=== PATIENT | male | born 1965 | race Caucasian/White ===

== ENCOUNTER 2019-12-13 15:10 | Outpatient (REF) | payer OTHER, SELFPAY ==
[2019-12-13 15:43] LABS: MANUAL DIFF FLAG NO
[2019-12-13 15:49] LABS: Basophils Percent Auto 0.4 % (0-2); Eosinophils Absolute Auto 0.1 X10*3/uL (0.0-0.4); Eosinophils Percent Auto 1.6 % (0-4); Hematocrit 37.2 % (42-52); Hemoglobin 12.9 g/dl (14.0-18.0); Imm Gran Abs Auto 0.04 X10*3/uL (0.00-0.03); Imm Gran Pct Auto 0.5 % (0.0-0.4); Lymphocytes Absolute Auto 1.7 X10*3/uL (1.2-4.9); Lymphocytes Percent Auto 23.9 % (20-40); Mean Corpuscular HGB Conc 34.7 g/dl (31.0-36.0); Mean Corpuscular Hemoglobin 31.5 pg (27.0-33.0); Mean Platelet Volume 8.5 fL (9.4-12.4); Monocytes Absolute Auto 0.5 X10*3/uL (0.1-1.2); Neutrophils Absolute Auto 4.8 X10*3/uL (2.0-8.3); Neutrophils Percent Auto 66.6 % (45-73); Platelet Count 138 X10*3/uL (160-400); Red Blood Count 4.09 X10*6/uL (4.60-5.80); Red Cell Distribution Width 13.1 % (11.0-16.0); White Blood Count 7.3 X10*3/uL (4.8-10.8)
[2019-12-13 16:10] LABS: C Reactive Protein 0.41 mg/dL (< or = 0.50)
== END 2019-12-13 15:11 | disposition home or self-care (01) ==
LOC: HO.LAB 15:10
PROVIDERS: PCP Internal Medicine; Visit Provider Internal Medicine
DX: D64.9 Anemia, unspecified (principal); D69.6 Thrombocytopenia, unspecified; L98.9 Disorder of the skin and subcutaneous tissue, unspecified
CPT/HCPCS: 36415; 85025; 86140

== ENCOUNTER 2019-12-20 14:28 | Outpatient (REF) | payer OTHER, SELFPAY ==
--- NOTE | 2019-12-20 | MM_ITS ---
EXAMINATION: MM DIAGNOSTIC DIGITAL BREAST TOMOSYNTHESIS, BILATERAL US DIAGNOSTIC ULTRASOUND BREAST, LEFT CLINICAL INFORMATION: 54-year-old male with palpable fullness outer left breast. Prior history left breast surgery for palpable mass 2008, benign. Family history breast cancer in sister, age 55. COMPARISON: Report mammography 07/23/2008, report ultrasound left breast 07/23/2008. TECHNIQUE: Digital breast tomosynthesis is performed in both the craniocaudal and mediolateral oblique views along with computer-aided detection (CAD). Synthesized 2D images are generated from the tomosynthesis. Additional exaggerated left CC view is provided. Ultrasound left breast is targeted to the area of clinical concern noted by patient inferior and lateral anterior posterior left breast. Grayscale imaging and color Doppler are performed without and with harmonics. Patient is able to point to the areas of concern at time of imaging. FINDINGS: The breasts are almost entirely fatty (ACR BI-RADS breast composition Category a). Background stromal markings are symmetric. There is no mass or architectural abnormality. No abnormal calcifications. The axilla and skin contours are unremarkable. Ultrasound left breast demonstrates no cystic or solid mass or architectural abnormality. No focal duct ectasia. No skin thickening or edema tracking in the soft tissue planes. Results are discussed with the patient at time of visit. Patient should be managed based on the clinical impression. If clinically indicated, further evaluation may be considered with surgical consult. Decision to proceed with biopsy should be based on clinical grounds and degree of clinical concern. IMPRESSION: 1. No mammographic evidence of malignancy. 2. Unremarkable targeted left breast ultrasound. ASSESSMENT: BI-RADS 1: Negative RECOMMENDATION: Patient should be managed based on the clinical impression. If clinically indicated, further evaluation may be considered with surgical consult. Decision to proceed with biopsy should be based on clinical grounds and degree of clinical concern.
== END 2019-12-20 14:29 | disposition home or self-care (01) ==
LOC: HO.MAMMO 14:28
PROVIDERS: PCP Internal Medicine; Visit Provider Internal Medicine
DX: N63.25 Unspecified lump in the left breast, overlapping quadrants (principal)
CPT/HCPCS: 76642; 77062; 77066; 78013

== ENCOUNTER → 2020-01-09 14:15 | Outpatient (BNVA) | payer OTHER, SELFPAY | PROVIDERS: PCP Internal Medicine; Referring Provider Internal Medicine; Visit Provider Surgery | DX: Z76.89 Persons encountering health services in other specified circumstances (principal) ==

== ENCOUNTER 2020-01-17 06:42 | Day surgery (SDC) | payer OTHER, SELFPAY ==
--- NOTE | 2020-01-15 15:09 | P.CONAN_ITS ---
Documented by User: Mary Beth Sutherland 01/15/20 15:10 HPI - Anesthesia Eval Consult details Narrative: 54yo M for Excision Pectoral Mass [facility] Past Medical History Medical History (Updated 01/17/20 @ 07:08 by Princess Clifford RN) Celiac disease Family history of breast cancer Family history of ovarian cancer Gynecomastia Family History Family History Father History of prostate cancer Mother History of ovarian cancer Sister History of breast cancer Sister History of lung cancer Maternal Uncle History of lung cancer Surgical History Surgical History History of breast lump/mass excision History of eye surgery Social History Social History Alcohol intake: current Alcohol intake frequency: 0-2 drinks per day Alcohol type: beer Smoking Status: Former smoker Years Smoked: 12 Smoking Quit Date: 1989 Use of substances other than those prescribed or required for medical reasons: No Advance Directives: No Advance Directives Information Provided: Yes Meds Allergies Allergy/AdvReac Type Severity Reaction Status Date / Time No Known Allergies Allergy Verified 01/09/20 14:56 Home Medications Medication Instructions Recorded Confirmed Type No Known Home Meds 01/09/20 History Exam Exam Date and Time: January 15, 2020 8559 Pertinent Lab Results Pertinent Lab Results: Laboratory Tests 07/26/19 12/13/19 16:20 15:30 WBC 7.3 Hgb 12.9 L Hct 37.2 L Plt Count 138 L Sodium 138 Potassium 3.5 Chloride 102 BUN 16 Creatinine 1.12 Assessment and Plan Assessment Anesthesia Assessment: Chart Reviewed Documented by User: Thierry Garcia 01/17/20 08:38 [facility] Past Medical History Medical History (Updated 01/17/20 @ 07:08 by Princess Clifford RN) Celiac disease Family history of breast cancer Family history of ovarian cancer Gynecomastia Family History Family History Father History of prostate cancer Mother History of ovarian cancer Sister History of breast cancer Sister History of lung cancer Maternal Uncle History of lung cancer Surgical History Surgical History History of breast lump/mass excision History of eye surgery Social History Social History Alcohol intake: current Alcohol intake frequency: 0-2 drinks per day Alcohol type: beer Smoking Status: Former smoker Years Smoked: 12 Smoking Quit Date: 1989 Use of substances other than those prescribed or required for medical reasons: No Advance Directives: No Advance Directives Information Provided: Yes Meds Allergies Allergy/AdvReac Type Severity Reaction Status Date / Time No Known Allergies Allergy Verified 01/09/20 14:56 Home Medications Medication Instructions Recorded Confirmed Type No Known Home Meds 01/09/20 History Exam Airway Mallampati Class: I TM Dist: >3cm Neck ROM: Full Other: missing teeth. Assessment and Plan Assessment Anesthesia Assessment: Anesthesia Plan Discussed and Chart Reviewed Final Anesthetic Review NPO: Yes ASA Class: II Final Preanesthetic Review: No Changes in Pt Med Stat, Meds/Allgs Chart Reviewed, Consent Obtained/Reviewed and Anes Risks/Benef Reviewed Patient Risk: Low Procedure Risk: Low Anesthetic Plan Anesthetic Plan: MAC: and Agree w/ Assess. and Plan Disposition: Standard PACU
[2020-01-17 06:48] VITALS: BMI 26.2
[2020-01-17 06:57] VITALS: BP 121/68; PULSE 65; RESP 16; TEMP 36.7; O2SAT 95
[2020-01-17] MEDS: Lactated Ringers 1,000 ML 100 ML IVCONT (07:07)
--- NOTE | 2020-01-17 08:22 | MHC.SHP ---
Pre-Procedural Eval Section A The patient is an INPATIENT: No Changes since office visit: Yes Patient answered all questions; No Cold of Flu in the past 2 weeks, No New Medical Problems and No Changes in Medication The History & Physical has been completed within 30 days and I have reviewed it.: Yes Section B Chief Complaint: Mass of Left Chest Wall Allergies: Allergies Allergy/AdvReac Type Severity Reaction Status Date / Time No Known Allergies Allergy Verified 01/09/20 14:56 Plan Patient has been examined and remains a candidate for the planned procedure
[2020-01-17 09:33] VITALS: BP 121/68; PULSE 57; RESP 16; TEMP 36.6; O2SAT 96
--- NOTE | 2020-01-17 09:45 | W.PM.OPN ---
Operative Note Operative Note Narrative: Preoperative diagnosis: Mass left chest wall Postoperative diagnosis: Same Procedure: Excision of mass left chest wall Product Marketing Engineer: None Anesthesia: monitored anesthesia care Estimated blood loss: 5 cc Specimen: Left breast tissue Immediate complications: None Other findings: None Indications this is a 54-year-old male with a prior history of excision of left gynecomastia who presents with a tender mass of the left chest wall at about 03:00 o'clock just lateral to the areolar border. Procedure in detail: With the patient in the supine position, a time-out procedure was performed. The left chest wall was prepped with ChloraPrep and was draped sterilely. Skin and subcutaneous tissues were infiltrated with local anesthetic. A curvilinear incision was made at the lateral border of the areola and was carried into the subcutaneous tissues. Bleeding was controlled using the cautery. Flap was then raised moving laterally to the area of the palpable mass. The mass was sharply excised using Metzenbaum scissors. Bleeding was controlled using the electrocautery. The excised tissue appeared consistent with benign breast tissue. Palpation of the surgical site revealed some remaining nodular tissue. This was grasped with an Allis clamp and excised. Repeat palpation of the surgical site did not reveal any residual for more nodular tissue. The wound was irrigated with saline solution and was inspected for bleeding. Minimal bleeding was noted and was controlled using the cautery. The wound was then closed with interrupted subcutaneous sutures of 3-0 Polysorb. Skin was closed with a running subcuticular suture of 4-0 Polysorb. Steri-Strips and a dry sterile dressing were applied. He tolerated the procedure well and was transported to the recovery room in stable condition. There were no immediate complications. Sponge and sharp counts were correct.
[2020-01-17 09:48] VITALS: BP 126/74; PULSE 59; RESP 17; TEMP 36.6; O2SAT 97
--- NOTE | 2020-01-17 10:11 | HO.POSTANES ---
Post Anesthesia Evaluation Post Anesthesia Evaluation Vital Signs: Vital Signs Temp Pulse Resp BP Pulse Ox 01/17/20 09:48 98 F 59 17 126/74 97 01/17/20 09:33 97.9 F 57 16 121/68 96 01/17/20 06:57 98.0 F 65 16 121/68 95 Anesthesia: General (tiva) Mental Status: Awake Pain Control: Satisfactory Nausea/Vomiting: None Hydration: Adequate Anesthesia-Related Issues: No Anes. Related Issues
== END 2020-01-17 10:35 | disposition home or self-care (01) ==
PROVIDERS: PCP Internal Medicine; Visit Provider Surgery
DX: D24.2 Benign neoplasm of left breast (principal); N62 Hypertrophy of breast; Z80.3 Family history of malignant neoplasm of breast
CPT/HCPCS: 11404; 12032; 88305; J2250; J3010

== ENCOUNTER → 2020-01-25 09:24 | Outpatient (BNVA) | payer OTHER, SELFPAY | PROVIDERS: PCP Internal Medicine; Referring Provider Internal Medicine; Visit Provider Surgery | DX: Z76.89 Persons encountering health services in other specified circumstances (principal) ==

== ENCOUNTER → 2020-02-20 15:58 | Outpatient (BNVA) | payer OTHER, SELFPAY | PROVIDERS: PCP Internal Medicine; Visit Provider Surgery | DX: Z76.89 Persons encountering health services in other specified circumstances (principal) ==

== ENCOUNTER 2020-03-12 15:54 | Outpatient (REF) | payer OTHER, SELFPAY | END 2020-03-12 15:55 | disposition home or self-care (01) | LOC: HO.LNP 15:54 | PROVIDERS: Visit Provider Internal Medicine | DX: Z20.828 Contact with and (suspected) exposure to other viral communicable diseases (principal) | CPT/HCPCS: U0003 ==

== ENCOUNTER 2020-05-05 09:55 | Emergency (ER) | payer OTHER, SELFPAY ==
--- NOTE | ~2020-05-05 | XR_ITS ---
EXAMINATION: XR knee LT 4V CLINICAL INFORMATION: Pain and swelling COMPARISON: None available at the time of this dictation. TECHNIQUE: frontal, lateral, tunnel and patella sunrise views FINDINGS: BONES: No fracture or dislocation is present. JOINTS: Narrowing of joint spaces and developed osteophytes from the edges of articular surfaces suggest degenerative osteoarthritis. SOFT TISSUE: Intra-articular calcification suggesting possible calcium pyrophosphate deposition disease. XR/XR knee LT 4V IMPRESSION: Mild degenerative osteoarthritis. Intra-articular calcification for possible CPPD.
[2020-05-05 09:57] VITALS: BP 129/48; PULSE 73; RESP 16; TEMP 36.7; O2SAT 100; BMI 28.0
--- NOTE | 2020-05-05 10:08 | PC.NURSE ---
ambulatory with steady/limping gait to main ed, changing in to hospital gown for exam
--- NOTE | 2020-05-05 10:57 | ED.EXTPRO ---
HPI - Extremity Problem General Chief complaint: Extremity Problem Stated complaint: knee pain - no known injury Time Seen by Provider: 05/05/20 10:16 Source: patient Mode of arrival: ambulatory Limitations: no limitations History of Present Illness HPI Narrative: 54 y/o male presenting with non-traumatic left knee swelling and pain for the last 5 days. He states he has on/off knee pain from mild arthritis over the last few years but his pain usually improves with ice and Advil. This time the pain and swelling persisted. He reports the knee is warm but there is no redness. He denies fevers. He reports his left hip is sore as well from walking with a limp. He has been using a cane to walk. MD Complaint: extremity pain and extremity swelling Onset (ago): day(s) (5) Pain Consistency: constant Location: left, lower extremity and knee Severity scale (1-10): 8 Quality: aching, dull and constant Radiation: none Relieving factors: cold therapy and medication Exacerbating factors: range of motion, weight bearing, walking and palpation Associated symptoms: denies other symptoms Related Data Previous Rx's Medication Instructions Recorded oxycodone 5 mg PO Q4H PRN #8 tab 01/17/20 naproxen 500 mg PO BID #20 tab 05/05/20 prednisone 40 mg PO DAILY #10 tab 05/05/20 Allergies Allergy/AdvReac Type Severity Reaction Status Date / Time No Known Allergies Allergy Verified 02/20/20 16:05 Review of Systems Review of Systems: Constitutional: No Fever, No Chills Cardiovascular: No Chest Pain, No SOB Respiratory: No Cough, No Sputum Gastrointestinal: No Nausea, No Vomiting, No Diarrhea, No abdominal Pain Musculoskeletal: + joint pain, No Myalgias Skin: No Skin Lesions, No rash Neuro: No Weakness, No Numbness, No Dizziness, No Headache Psych: No Anxiety/Panic, No Depression Heme/Lymph: No Bruising, No Lymphadenopathy PMFSH Past Medical History Attestation statement: The following information was validated with the patient. Medical History Celiac disease Family history of breast cancer Family history of ovarian cancer Gynecomastia Surgical History History of breast lump/mass excision History of excision of mass (~01/17/20) History of eye surgery Family History Family History Father History of prostate cancer Mother History of ovarian cancer Sister History of breast cancer Sister History of lung cancer Maternal Uncle History of lung cancer Social History Social History Alcohol intake: current Alcohol intake frequency: a few times a week Alcohol type: beer Smoking Status: Former smoker Years Smoked: 12 Smoked in Last 30 Days: No Use of substances other than those prescribed or required for medical reasons: No Advance Directives: No Advance Directives Information Provided: No Physical Exam Vital Signs: Vital Signs: Last Vital Signs Temp 98.0 F 05/05/20 13:24 Pulse 88 05/05/20 13:24 Resp 14 05/05/20 13:24 BP 128/68 05/05/20 13:24 Pulse Ox 99 05/05/20 13:24 Body Mass Index 28.0 Appearance: Alert. Oriented X3. No acute distress. HEENT: normal inspection CVS: Normal heart rate and rhythm. Pulses normal. Respiratory: No respiratory distress. Skin: Skin warm and dry. Normal skin color. Normal skin turgor. No rashes. Extremities: left knee with swelling and warmth medially, tender throughout. unable to flex due to pain. no erythema. Neuro: Oriented X 3. Gait not tested due to pain Course Course Course Narrative: 54 y/o male presenting with left knee pain and swelling, no trauma. Reevaluation(s) Reevaluation #1: XR shows: BONES: No fracture or dislocation is present. JOINTS: Narrowing of joint spaces and developed osteophytes from the edges of articular surfaces suggest degenerative osteoarthritis. SOFT TISSUE: Intra-articular calcification suggesting possible calcium pyrophosphate deposition disease. XR/XR knee LT 4V IMPRESSION: Mild degenerative osteoarthritis. Intra-articular calcification for possible CPPD. Given he has no history of gout or pseudogout will do arthrocentesis to r/o septic joint. He is non-toxic appearing and doubt infectious etiology. Reevaluation #2: Knee arthrocentesis performed - awaiting results prior to d/c. Joint fluid with only 26 WBC which goes against acute infection. Crystals are present CPPD consistent with pseudogout. Will treat with steroids and NSAID. Stable for d/c. He will follow up with Ortho this week. Procedures Joint Aspiration/Injection Joint Asp./Inject. 1: Time Out Performed: Yes Side of body: left Joint Aspirated: knee Ultrasound Guidance: No Skin Prep: Povidone-Iodine1% Local Anesthetic: lidocaine 2% Amount of anesthesia used (mL): 5 Needle Size Used: 18G Fluid Obtained: turbid Total fluid obtained (mL): 45 Patient Tolerated Procedure: well and no complications Complications: local bleeding MDM - Extremity (Nontraumatic) Lab Data Labs: Lab Results 05/05/20 Range/Units 12:06 Synovial Source knee Synovial WBC 26.064 X10*3/uL Synovial RBC 0.005 X10*6/uL Synovial Neutrophils 95 % Synovial Lymphocytes 2 % Synovial Monocytes 3 % Critical Care Time Critical Care Time Critical Care Time: No Discharge Plan Discharge Clinical Impression: Pseudogout Patient Disposition: Home, Self-Care Instructions: Pseudogout (ED) Additional Instructions: Your knee joint fluid did not show any evidence of infection. The fluid test showed evidence of pseudogout. Treatment is - steroid and anti-inflammatories. Take the prescribed medications as directed. Continue to wear the ELSA wrap for compression and comfort. Use ice several times per day. Follow up with your doctor as needed. Follow up with the Orthopedic doctors this week for further management. Prescriptions: New naproxen 500 mg tablet 500 mg PO BID Qty: 20 RF: 0 prednisone 20 mg tablet 40 mg PO DAILY Qty: 10 RF: 0 No Action oxycodone 5 mg tablet 5 mg PO Q4H PRN (Reason: pain) Qty: 8 RF: 0 Referrals: Quentin Louis MD [Physician] - 2 days (gout vs pseudogout) Stand Alone Forms: Work/School Release
[2020-05-05] MEDS: NaPROXEN 500 MG TABLET PO (11:41)
[2020-05-05 12:12] LABS: Source Synovial Fluid knee
[2020-05-05] MEDS: Lidocaine HCl 2 % MPF 5 ML VIAL INFILTRATI (12:17)
[2020-05-05 12:22] LABS: MN% 8.6 %; PMN% 91.4 %; RBC Synovial Fluid 0.005 X10*6/uL
[2020-05-05 12:44] LABS: WBC Synovial Fluid 26.064 X10*3/uL
[2020-05-05 12:46] LABS: BF Shift QC OK YES; Lymphocytes Synovial Fluid 2 %; Man Diluent Bkgrd OK YES; Monocytes Synovial Fluid 3 %; Neutrophils Synovial Fluid 95 %
[2020-05-05 13:24] VITALS: BP 128/68; PULSE 88; RESP 14; TEMP 36.7; O2SAT 99
== END 2020-05-05 14:00 | disposition home or self-care (01) ==
PROVIDERS: Physician Assistant; Emergency Provider Emergency Medicine Emergency Medical Services; PCP Internal Medicine
DX: M11.262 Other chondrocalcinosis, left knee (principal); M25.562 Pain in left knee; Z87.891 Personal history of nicotine dependence; Z79.899 Other long term (current) drug therapy
CPT/HCPCS: 20610; 73564; 87071; 87073; 87205; 89051; 89060; 99284

== ENCOUNTER → 2020-05-10 13:56 | Outpatient (BNVA) | payer OTHER, SELFPAY | PROVIDERS: PCP Internal Medicine; Visit Provider Physician Assistant | DX: M11.262 Other chondrocalcinosis, left knee (principal) | CPT/HCPCS: 20610; J1040 ==

== ENCOUNTER 2020-06-04 16:41 | Outpatient (REF) | payer OTHER, SELFPAY ==
[2020-06-04 17:18] LABS: MANUAL DIFF FLAG NO
[2020-06-04 17:24] LABS: Basophils Percent Auto 0.2 % (0-2); Eosinophils Absolute Auto 0.1 X10*3/uL (0.0-0.4); Eosinophils Percent Auto 1.7 % (0-4); Hematocrit 39.5 % (42-52); Hemoglobin 13.3 g/dl (14.0-18.0); Imm Gran Abs Auto 0.05 X10*3/uL (0.00-0.03); Imm Gran Pct Auto 1.2 % (0.0-0.4); Lymphocytes Absolute Auto 1.1 X10*3/uL (1.2-4.9); Lymphocytes Percent Auto 26.5 % (20-40); Mean Corpuscular HGB Conc 33.7 g/dl (31.0-36.0); Mean Corpuscular Hemoglobin 31.1 pg (27.0-33.0); Mean Corpuscular Volume 92.3 fL (80-98); Mean Platelet Volume 8.7 fL (9.4-12.4); Monocytes Absolute Auto 0.8 X10*3/uL (0.1-1.2); Monocytes Percent Auto 18.1 % (2-11); Neutrophils Absolute Auto 2.2 X10*3/uL (2.0-8.3); Neutrophils Percent Auto 52.3 % (45-73); Platelet Count 110 X10*3/uL (160-400); Red Blood Count 4.28 X10*6/uL (4.60-5.80); Red Cell Distribution Width 13.1 % (11.0-16.0); White Blood Count 4.2 X10*3/uL (4.8-10.8)
[2020-06-04 17:58] LABS: Alanine Aminotransferase 25 U/L (0-40); Albumin Level 4.3 g/dL (3.5-5.0); Alkaline Phosphatase 81 U/L (39-117); Anion Gap 13 (12-20); Aspartate Amino Transferase 24 U/L (5-37); Bilirubin Total 0.5 mg/dL (0.0-1.0); Blood Urea Nitrogen 21 mg/dL (9-16); Calcium 8.9 mg/dL (8.4-10.2); Carbon Dioxide 27 mmol/L (22-29); Chloride 102 mmol/L (96-108); Cholesterol 174 mg/dL; Estimated Glomerular Filt Rate 57; Glucose Random 104 mg/dL (60-115); HDL Cholesterol 49 mg/dL; LDL Cholesterol Calculated 107 mg/dl; Potassium 3.7 mmol/L (3.3-5.1); Sodium 138 mmol/L (135-145); Total Protein 7.1 g/dL (6.5-8.0); Triglycerides 94 mg/dL
[2020-06-04 18:31] LABS: Prostate Specific Antigen 0.34 ng/mL (<0.05-4.0)
== END 2020-06-04 16:42 | disposition home or self-care (01) ==
LOC: HO.LAB 16:41
PROVIDERS: PCP Internal Medicine; Visit Provider Internal Medicine
DX: Z00.00 Encounter for general adult medical examination without abnormal findings (principal); Z12.5 Encounter for screening for malignant neoplasm of prostate
CPT/HCPCS: 36415; 80053; 80061; 84153; 85025

== ENCOUNTER 2020-09-05 16:21 | Outpatient (REF) | payer OTHER, SELFPAY ==
--- NOTE | ~2020-09-05 | XR_ITS ---
EXAMINATION: XR FOOT, LEFT CLINICAL INFORMATION: Spurs. COMPARISON: None TECHNIQUE: AP, lateral, and oblique views of the left foot. FINDINGS: There is no acute fracture or dislocation. The joint spaces are unremarkable. The tarsal bones are normally aligned. Tiny plantar and retrocalcaneal spurs are noted. The soft tissues are unremarkable. XR/XR foot LT min 3V IMPRESSION: Tiny plantar and retrocalcaneal spurs without other significant abnormality.
[2020-09-05 18:32] LABS: Anion Gap 14 (12-20); Blood Urea Nitrogen 16 mg/dL (9-16); Calcium 9.3 mg/dL (8.4-10.2); Carbon Dioxide 24 mmol/L (22-29); Chloride 104 mmol/L (96-108); Estimated Glomerular Filt Rate > 60; Glucose Random 91 mg/dL (60-115); Potassium 3.9 mmol/L (3.3-5.1); Sodium 138 mmol/L (135-145)
== END 2020-09-05 16:22 | disposition home or self-care (01) ==
LOC: HO.LAB 16:21
PROVIDERS: PCP Internal Medicine; Visit Provider Internal Medicine
DX: M79.672 Pain in left foot (principal); R79.89 Other specified abnormal findings of blood chemistry
CPT/HCPCS: 36415; 73630; 80048

== ENCOUNTER 2021-02-10 13:56 | Outpatient (REF) | payer OTHER, SELFPAY ==
--- NOTE | ~2021-02-10 | XR_ITS ---
EXAMINATION: XR PELVIS CLINICAL INFORMATION: Left hip and sacroiliac joint pain. COMPARISON: 12/25/2014. TECHNIQUE: AP view of the pelvis. FINDINGS: No fracture or dislocation. The hips are well aligned. Joint spaces are maintained. The pelvic rim is intact. The sacroiliac joints and pubic symphysis are intact. No abnormal sclerosis. No fusion. Normal bowel gas pattern. Phleboliths in the pelvis. XR/XR pelvis 1-2V IMPRESSION: Normal pelvis.
[2021-02-10 14:22] LABS: MANUAL DIFF FLAG NO
[2021-02-10 15:07] LABS: Basophils Percent Auto 0.3 % (0-2); Eosinophils Absolute Auto 0.1 X10*3/uL (0.0-0.4); Hematocrit 39.8 % (42.0-52.0); Hemoglobin 13.4 g/dl (14.0-18.0); Imm Gran Abs Auto 0.04 X10*3/uL (0.00-0.03); Imm Gran Pct Auto 0.5 % (0.0-0.4); Lymphocytes Absolute Auto 1.5 X10*3/uL (1.2-4.9); Lymphocytes Percent Auto 21.2 % (20-40); Mean Corpuscular HGB Conc 33.7 g/dl (31.0-36.0); Mean Corpuscular Hemoglobin 31.2 pg (27.0-33.0); Mean Corpuscular Volume 92.6 fL (80.0-98.0); Mean Platelet Volume 8.9 fL (9.4-12.4); Monocytes Absolute Auto 0.6 X10*3/uL (0.1-1.2); Monocytes Percent Auto 8.7 % (2-11); Neutrophils Percent Auto 68.3 % (45-73); Platelet Count 136 X10*3/uL (160-400); Red Cell Distribution Width 12.8 % (11.0-16.0); White Blood Count 7.3 X10*3/uL (4.8-10.8)
[2021-02-10 15:25] LABS: Anion Gap 11 (12-20); Blood Urea Nitrogen 14 mg/dL (9-16); Calcium 9.3 mg/dL (8.4-10.2); Carbon Dioxide 28 mmol/L (22-29); Chloride 105 mmol/L (96-108); Estimated Glomerular Filt Rate > 60; Glucose Random 97 mg/dL (60-115); Potassium 4.4 mmol/L (3.3-5.1); Sodium 140 mmol/L (135-145)
== END 2021-02-10 13:57 | disposition home or self-care (01) ==
LOC: HO.XRAY 13:56
PROVIDERS: PCP Internal Medicine; Visit Provider Internal Medicine
DX: M25.552 Pain in left hip (principal); D69.6 Thrombocytopenia, unspecified; M53.3 Sacrococcygeal disorders, not elsewhere classified
CPT/HCPCS: 36415; 72170; 80048; 85025

== ENCOUNTER 2021-02-18 16:40 | Outpatient (REF) | payer OTHER, SELFPAY ==
[2021-02-18 18:08] LABS: Influenza A PCR NEGATIVE (Negative); Influenza B PCR NEGATIVE (Negative); Resp Syncy Virus RNA Qual PCR NEGATIVE (Negative); SARS COV2 PCR INHOUSE NEGATIVE (Negative)
== END 2021-02-18 16:41 | disposition home or self-care (01) ==
LOC: HO.LNP 16:40
PROVIDERS: Visit Provider Internal Medicine
DX: R51.9 Headache, unspecified (principal); Z20.822 Contact with and (suspected) exposure to COVID-19
CPT/HCPCS: 0241U

== ENCOUNTER 2021-05-26 10:46 | Outpatient (REF) | payer OTHER, SELFPAY ==
--- NOTE | ~2021-05-26 | XR_ITS ---
EXAMINATION: XR CERVICAL SPINE CLINICAL INFORMATION: Neck pain. Assess for OA. COMPARISON: None TECHNIQUE: 6 views of the cervical spine, inclusive of flexion and extension views, were obtained. FINDINGS: There is mild straightening of cervical lordosis. The vertebral heights and alignment are normal. There is mild loss of C4-C5 disc height. Rest of the disc heights are normal. There is mild ventral spondylosis. The neural foramina are patent bilaterally on oblique views. The craniovertebral junction and the C1-C2 alignment is normal. No visible acute fracture or dislocation seen. XR/XR cervical spine min 6V IMPRESSION: Mild straightening of cervical lordosis likely spasm. No visible acute fracture or dislocation seen. There is mild ventral spondylosis C4-C5 and C5-C6 disc levels.
[2021-05-26 11:20] LABS: MANUAL DIFF FLAG NO
[2021-05-26 11:56] LABS: Basophils Percent Auto 0.3 % (0-2); Eosinophils Absolute Auto 0.1 X10*3/uL (0.0-0.4); Eosinophils Percent Auto 0.7 % (0-4); Hematocrit 39.1 % (42.0-52.0); Hemoglobin 13.1 g/dl (14.0-18.0); Imm Gran Abs Auto 0.04 X10*3/uL (0.00-0.03); Imm Gran Pct Auto 0.6 % (0.0-0.4); Lymphocytes Absolute Auto 1.7 X10*3/uL (1.2-4.9); Lymphocytes Percent Auto 23.9 % (20-40); Mean Corpuscular HGB Conc 33.5 g/dl (31.0-36.0); Mean Corpuscular Hemoglobin 31.1 pg (27.0-33.0); Mean Corpuscular Volume 92.9 fL (80.0-98.0); Mean Platelet Volume 9.1 fL (9.4-12.4); Monocytes Absolute Auto 0.6 X10*3/uL (0.1-1.2); Monocytes Percent Auto 8.9 % (2-11); Neutrophils Absolute Auto 4.6 x10*3/uL (2.0-8.3); Neutrophils Percent Auto 65.6 % (45-73); Platelet Count 142 X10*3/uL (160-400); Red Blood Count 4.21 X10*6/uL (4.60-5.80); Red Cell Distribution Width 12.8 % (11.0-16.0)
[2021-05-26 12:29] LABS: C Reactive Protein 1.99 mg/dL (< or = 0.50)
== END 2021-05-26 10:47 | disposition home or self-care (01) ==
LOC: HO.LAB 10:46
PROVIDERS: PCP Internal Medicine; Visit Provider Internal Medicine
DX: M54.2 Cervicalgia (principal); R51.9 Headache, unspecified
CPT/HCPCS: 36415; 72052; 82550; 85025; 86140

== ENCOUNTER 2022-06-11 14:12 | Outpatient (REF) | payer OTHER, SELFPAY ==
--- NOTE | ~2022-06-11 | XR_ITS ---
EXAMINATION: XR LUMBOSACRAL SPINE CLINICAL INFORMATION: Back pain COMPARISON: Lumbar radiographs 12/25/2014 TECHNIQUE: Three views of the lumbosacral spine. FINDINGS: Normal lumbar segmentation with 5 nonrib-bearing lumbar vertebrae of normal height and normal lumbar lordosis. No lumbar vertebral compression, spondylolisthesis, destructive process. There is mild anterior vertebral spurring L3-L5 and borderline disc narrowing L4-L5. Old left lateral bridging osteophyte L4-L5. The SI joints and visualized sacrum appear normal. There is a old bone island medial right ilium. XR/XR lumbar spine 2-3V IMPRESSION: No vertebral compression, spondylolisthesis, or destructive process. Borderline disc narrowing L4-L5.
--- NOTE | ~2022-06-11 | XR_ITS ---
EXAMINATION: XR HIP, LEFT CLINICAL INFORMATION: Back pain radiating to left hip. COMPARISON: Pelvic radiograph 02/10/2021, left hip 12/25/2014; lumbar radiographs 06/11/2022. TECHNIQUE: Two views of the left hip. FINDINGS: No fracture, dislocation, or interval arthropathy left hip. No joint narrowing or erosive change. Soft tissue planes appear normal. There is subtle stable herniation pit. No destructive process. Left SI joint unremarkable. XR/XR hip LT min 2V IMPRESSION: No joint narrowing, erosive change, destructive process.
== END 2022-06-11 14:13 | disposition home or self-care (01) ==
LOC: HO.XRAY 14:12
PROVIDERS: PCP Internal Medicine; Visit Provider Internal Medicine
DX: M54.50 Low back pain, unspecified (principal); M25.552 Pain in left hip
CPT/HCPCS: 72100; 73502

== ENCOUNTER 2022-06-16 16:05 | Outpatient (REF) | payer OTHER, SELFPAY ==
[2022-06-16 16:21] LABS: MANUAL DIFF FLAG NO
[2022-06-16 17:30] LABS: Appearance Urine Clear; Color Urine Dark Yellow; Glucose Urine UA Negative (Negative); Leukocyte Esterase Urine Negative (Negative); Nitrite Urine Negative (Negative); PH 5.5 (5.0-9.0); Specific Gravity - Urine >= 1.030 (1.005-1.025); Urine Blood Negative (Negative); Urine Ketones Trace mg/dL (Negative); Urine Protein Negative (Neg-Trace)
[2022-06-16 17:42] LABS: Alanine Aminotransferase 12 U/L (0-40); Albumin Level 4.2 g/dL (3.5-5.0); Alkaline Phosphatase 77 U/L (39-117); Anion Gap 15 (12-20); Aspartate Amino Transferase 21 U/L (5-37); Blood Urea Nitrogen 16 mg/dL (9-16); Calcium 9.2 mg/dL (8.4-10.2); Carbon Dioxide 25 mmol/L (22-29); Chloride 104 mmol/L (96-108); Cholesterol 195 mg/dL; Estimated Glomerular Filt Rate > 60; Glucose Random 94 mg/dL (60-115); HDL Cholesterol 52 mg/dL; Iron 106 mcg/dL (45-160); LDL Cholesterol Calculated 132 mg/dl; Percent Iron Saturation 40 % (15-50); Potassium 3.8 mmol/L (3.3-5.1); Sodium 140 mmol/L (135-145); Total Iron Binding Capacity 265 mcg/dL (228-428); Total Protein 6.9 g/dL (6.5-8.0); Triglycerides 57 mg/dL; Unsaturated Iron Binding 159 ug/dL
[2022-06-16 17:58] LABS: Prostate Specific Antigen 0.33 ng/mL (<0.05-4.0)
[2022-06-16 19:38] LABS: Basophils Percent Auto 0.4 % (0-2); Eosinophils Absolute Auto 0.1 X10*3/uL (0.0-0.4); Eosinophils Percent Auto 0.6 % (0-4); Hematocrit 38.9 % (42.0-52.0); Hemoglobin 13.5 g/dl (14.0-18.0); Imm Gran Abs Auto 0.04 X10*3/uL (0.00-0.03); Imm Gran Pct Auto 0.5 % (0.0-0.4); Lymphocytes Absolute Auto 1.9 X10*3/uL (1.2-4.9); Lymphocytes Percent Auto 24.4 % (20-40); Mean Corpuscular HGB Conc 34.7 g/dl (31.0-36.0); Mean Corpuscular Hemoglobin 30.8 pg (27.0-33.0); Mean Corpuscular Volume 88.8 fL (80.0-98.0); Mean Platelet Volume 8.5 fL (9.4-12.4); Monocytes Absolute Auto 0.7 X10*3/uL (0.1-1.2); Monocytes Percent Auto 8.4 % (2-11); Neutrophils Absolute Auto 5.1 x10*3/uL (2.0-8.3); Neutrophils Percent Auto 65.7 % (45-73); Platelet Count 159 X10*3/uL (160-400); Red Blood Count 4.38 X10*6/uL (4.60-5.80); Red Cell Distribution Width 12.9 % (11.0-16.0); White Blood Count 7.7 X10*3/uL (4.8-10.8)
== END 2022-06-16 16:06 | disposition home or self-care (01) ==
LOC: HO.LAB 16:05
PROVIDERS: PCP Internal Medicine; Visit Provider Internal Medicine
DX: Z00.00 Encounter for general adult medical examination without abnormal findings (principal); Z12.5 Encounter for screening for malignant neoplasm of prostate; E11.9 Type 2 diabetes mellitus without complications
CPT/HCPCS: 36415; 80053; 80061; 81003; 83540; 84153; 85025

== ENCOUNTER 2023-02-16 15:25 | Outpatient (REF) | payer OTHER, SELFPAY ==
[2023-02-16 15:51] LABS: MANUAL DIFF FLAG NO
[2023-02-16 17:07] LABS: Basophils Percent Auto 0.5 % (0-2); Eosinophils Absolute Auto 0.1 X10*3/uL (0.0-0.4); Eosinophils Percent Auto 0.9 % (0-4); Hematocrit 40.8 % (42.0-52.0); Hemoglobin 13.7 g/dl (14.0-18.0); Imm Gran Abs Auto 0.02 X10*3/uL (0.00-0.03); Imm Gran Pct Auto 0.3 % (0.0-0.4); Mean Corpuscular HGB Conc 33.6 g/dl (31.0-36.0); Mean Corpuscular Volume 92.3 fL (80.0-98.0); Mean Platelet Volume 8.9 fL (9.4-12.4); Monocytes Absolute Auto 0.6 X10*3/uL (0.1-1.2); Monocytes Percent Auto 8.7 % (2-11); Neutrophils Absolute Auto 3.8 x10*3/uL (2.0-8.3); Neutrophils Percent Auto 58.6 % (45-73); Platelet Count 146 X10*3/uL (160-400); Red Blood Count 4.42 X10*6/uL (4.60-5.80); Red Cell Distribution Width 12.8 % (11.0-16.0); White Blood Count 6.4 X10*3/uL (4.8-10.8)
[2023-02-16 17:11] LABS: Appearance Urine Clear; Color Urine Yellow; Glucose Urine UA Negative (Negative); Leukocyte Esterase Urine Negative (Negative); Nitrite Urine Negative (Negative); PH 5.5 (5.0-9.0); Urine Blood Negative (Negative); Urine Ketones Negative (Negative); Urine Protein Negative (Neg-Trace)
[2023-02-16 17:29] LABS: Alanine Aminotransferase 9 U/L (0-40); Albumin Level 4.1 g/dL (3.5-5.0); Alkaline Phosphatase 62 U/L (39-117); Anion Gap 11 (12-20); Aspartate Amino Transferase 20 U/L (5-37); Bilirubin Total 0.6 mg/dL (0.0-1.0); Blood Urea Nitrogen 14 mg/dL (9-16); C Reactive Protein 0.25 mg/dL (< or = 0.50); Calcium 9.3 mg/dL (8.4-10.2); Carbon Dioxide 24 mmol/L (22-29); Chloride 107 mmol/L (96-108); Estimated Glomerular Filt Rate > 60; Glucose Random 90 mg/dL (60-115); Lipase 17 U/L (8-78); Potassium 3.7 mmol/L (3.3-5.1); Sodium 138 mmol/L (135-145); Total Protein 7.3 g/dL (6.5-8.0)
[2023-02-18 09:18] LABS: Free Prostate Spec Ag 0.1 ng/mL; Percent Free Prostate Spec Ag 25 % (calc) (>25); Prostate Specific Ag Total 0.4 ng/mL (< OR = 4.0)
== END 2023-02-16 15:26 | disposition home or self-care (01) ==
LOC: HO.LAB 15:25
PROVIDERS: PCP Internal Medicine; Visit Provider Internal Medicine
DX: Z12.5 Encounter for screening for malignant neoplasm of prostate (principal); R10.9 Unspecified abdominal pain; D64.9 Anemia, unspecified; D69.6 Thrombocytopenia, unspecified
CPT/HCPCS: 36415; 80053; 81003; 83690; 84154; 85025; 86140; 87086

== ENCOUNTER 2023-03-24 13:22 | Outpatient (REF) | payer OTHER, SELFPAY ==
--- NOTE | ~2023-03-24 | CT_ITS ---
EXAMINATION: CT ABDOMEN AND PELVIS WITHOUT CONTRAST CLINICAL INFORMATION: Hematospermia. COMPARISON: 10/08/2010 TECHNIQUE: Multidetector volumetric imaging was performed from the superior aspect of the liver through the pubic symphysis. Sagittal and coronal reformatted images were obtained on the technologist's workstation. This CT examination was performed using dose optimization techniques as appropriate, variously including the following: *Automated exposure control *Adjustment of mA and/or kV according to patient size (this includes techniques or standardized protocols for targeted exams where dose is matched to indication/reason for exam; i.e. extremities or head) *Use of iterative reconstruction technique DLP: 749 mGy-cm FINDINGS: LUNG BASES: The visualized lung bases are unremarkable. LIVER, GALLBLADDER, AND BILIARY TREE: The liver is increased in attenuation. 6 mm left hepatic hypodensity too small to characterize. No biliary ductal dilatation is present. The gallbladder is unremarkable with no evidence of radiopaque gallstones, gallbladder wall thickening, or obvious pericholecystic inflammatory changes. PANCREAS: Unremarkable. SPLEEN: Unremarkable. ADRENAL GLANDS: Unremarkable. KIDNEYS AND URETERS: The kidneys are symmetric in size. Left renal parapelvic cysts. No hydronephrosis or perinephric stranding. BLADDER: Unremarkable. GASTROINTESTINAL TRACT: Small and large bowel loops are of normal caliber. No small bowel obstruction. Appendix is within normal limits. ABDOMINAL WALL: No significant hernia is appreciated. LYMPH NODES: Nonspecific mesenteric stranding and edema. Subcentimeter mesenteric lymph nodes are nonspecific. VASCULAR: No abdominal aortic aneurysm. PELVIC VISCERA: Unremarkable. OSSEOUS STRUCTURES: No destructive bone lesions. CT/CT abdomen pelvis wo IV con IMPRESSION: No CT explanation for patient's hematospermia. Nonspecific mesenteric stranding and edema.
== END 2023-03-24 13:23 | disposition home or self-care (01) ==
LOC: HO.CT 13:22
PROVIDERS: PCP Internal Medicine; Visit Provider Internal Medicine
DX: R36.1 Hematospermia (principal)
CPT/HCPCS: 74176

== ENCOUNTER 2023-03-26 13:36 | Outpatient (REF) | payer OTHER, SELFPAY ==
[2023-03-26 14:53] LABS: Influenza A PCR NEGATIVE (Negative); Influenza B PCR NEGATIVE (Negative); Resp Syncy Virus RNA Qual PCR POSITIVE (Negative); SARS COV2 PCR INHOUSE NEGATIVE (Negative)
== END 2023-03-26 13:37 | disposition home or self-care (01) ==
LOC: HO.LNP 13:36
PROVIDERS: Visit Provider Internal Medicine
DX: Z11.52 Encounter for screening for COVID-19 (principal); Z20.822 Contact with and (suspected) exposure to COVID-19; R05.9 Cough, unspecified; R06.2 Wheezing; R50.9 Fever, unspecified
CPT/HCPCS: 0241U

== ENCOUNTER 2023-05-23 08:42 | Emergency (ER) | payer OTHER, SELFPAY ==
--- NOTE | ~2023-05-23 | XR_ITS ---
EXAMINATION: XR ELBOW, RIGHT CLINICAL INFORMATION: Rule out elbow fracture COMPARISON: Same day forearm radiographs. TECHNIQUE: AP, lateral, and oblique views of the right elbow. FINDINGS: No acute fracture or dislocation. Joint spaces are maintained. Soft tissues are unremarkable. No joint effusion. XR/XR elbow RT min 3V IMPRESSION: * No acute osseous abnormality or joint effusion.
--- NOTE | ~2023-05-23 | XR_ITS ---
EXAMINATION: XR forearm RT, XR hand wrist RT CLINICAL INFORMATION: Reason for Exam atraumatic swelling COMPARISON: Wrist radiograph 09/16/2012 TECHNIQUE: Two views of the forearm and 4 views of the wrist FINDINGS: Mineralization within the TFCC cartilage which can be seen in the setting of chondrocalcinosis. Small triceps tendon enthesophyte. Subchondral cystic change in the lunate. The lateral view of the forearm is limited by degree of obliquity, and there is an equivocal sail sign which can be seen in setting of joint effusion and occult fracture, recommend correlation with dedicated elbow radiographs if any concern for elbow fracture. No acute fracture or dislocation in the wrist. XR/XR forearm RT 2V IMPRESSION: 1. The lateral view of the forearm is limited by degree of obliquity, and there is an equivocal sail sign which can be seen in setting of joint effusion and occult fracture, recommend correlation with dedicated elbow radiographs if any concern for elbow fracture. 2. Mineralization within the TFCC cartilage which can be seen in the setting of chondrocalcinosis. 3. Degenerative changes of the wrist and elbow.
--- NOTE | ~2023-05-23 | XR_ITS ---
EXAMINATION: XR forearm RT, XR hand wrist RT CLINICAL INFORMATION: Reason for Exam atraumatic swelling COMPARISON: Wrist radiograph 09/16/2012 TECHNIQUE: Two views of the forearm and 4 views of the wrist FINDINGS: Mineralization within the TFCC cartilage which can be seen in the setting of chondrocalcinosis. Small triceps tendon enthesophyte. Subchondral cystic change in the lunate. The lateral view of the forearm is limited by degree of obliquity, and there is an equivocal sail sign which can be seen in setting of joint effusion and occult fracture, recommend correlation with dedicated elbow radiographs if any concern for elbow fracture. No acute fracture or dislocation in the wrist. XR/XR hand wrist RT IMPRESSION: 1. The lateral view of the forearm is limited by degree of obliquity, and there is an equivocal sail sign which can be seen in setting of joint effusion and occult fracture, recommend correlation with dedicated elbow radiographs if any concern for elbow fracture. 2. Mineralization within the TFCC cartilage which can be seen in the setting of chondrocalcinosis. 3. Degenerative changes of the wrist and elbow.
[2023-05-23 08:44] VITALS: BP 115/74; PULSE 76; RESP 16; TEMP 36.8; O2SAT 98; BMI 28.1
--- NOTE | 2023-05-23 09:21 | ED.EXTPRO ---
HPI - Extremity Problem General Chief complaint: Extremity Injury, Upper Stated complaint: Swelling right hand Time Seen by Provider: 05/23/23 09:16 Source: patient, RN notes reviewed and old records reviewed Mode of arrival: ambulatory Limitations: no limitations History of Present Illness HPI Narrative: 57 year old right-hand dominant male with pmhx significant for celiac disease and pseudogout presents to the ED today for evaluation of swelling to right hand x3 days. He states that the swelling has worsened, prohibiting him from making a fist or moving his hand. The swelling began in his right wrist and has now spread to his entire hand and about 1/3 up his right forearm. Endorses a numb sensation to the right hand. Denies any injury or trauma to the hand. He admits that he was scratched by his dog on the right wrist prior to the swelling started however he is unsure if this is the cause. Admits to history of pseudogout in his left knee and states that this numbness feels similar. Denies fever, chills, nausea or vomiting. Denies fever, chills, rashes, nausea or vomiting. Denies swelling of any other joints. Denies recent tick or insect bites. Is not outside in the [place] often. Related Data Previous Rx's Medication Instructions Recorded naproxen 500 mg tablet 500 mg PO BID #20 tabs 05/05/20 prednisone 20 mg tablet 40 mg (2 x 20 mg) PO DAILY #10 tabs 05/05/20 naproxen 500 mg tablet 500 mg PO Q8-12H PRN pain (scale 05/23/23 score 4-6) #14 tabs prednisone 20 mg tablet 40 mg (2 x 20 mg) PO DAILY 5 days 05/23/23 #10 tabs Allergies Allergy/AdvReac Type Severity Reaction Status Date / Time No Known Allergies Allergy Verified 05/10/20 14:03 Review of Systems Review of Systems: Constitutional: No fever, chills, fatigue, night sweats, weight changes ENT/Mouth: No ear pain, hearing loss, nasal congestion, sinus pain, rhinorrhea, sore throat Eyes: No eye pain, swelling, redness, vision changes, discharge Cardio: No chest pain, palpitations, JACK[place], orthopnea, peripheral edema Pulm: No SOB, cough, sputum, wheezing, dyspnea, hemoptysis GI: No nausea, vomiting, hematemesis, abdominal pain, diarrhea, constipation, hematochezia, melena : No irregular bleeding, dysuria, frequency, urgency, hesitancy, hematuria, flank pain, urinary flow changes, urinary incontinence or retention MSK: No back pain, neck pain, joint pain, myalgias, +swollen right hand Skin: No lesions, rashes Neuro: No weakness, numbness, paresthesias, LOC, dizziness, headache Psych: No anxiety/panic, depression, SI/HI, AH/VH All other systems reviewed and are negative. [facility] Past Medical History Attestation statement: The following information was validated with the patient. Source: old records reviewed and nursing notes reviewed Medical History Celiac disease Family history of ovarian cancer Family history of breast cancer Gynecomastia Surgical History History of excision of mass (~01/17/20) History of breast lump/mass excision History of eye surgery Family History Family History Father History of prostate cancer Mother History of ovarian cancer Sister History of breast cancer Sister History of lung cancer Maternal Uncle History of lung cancer Social History Social History Alcohol intake: current Alcohol intake frequency: a few times a week Alcohol type: beer Years Smoked: 12 Smoked in Last 30 Days: No Use of substances other than those prescribed or required for medical reasons: No Advance Directives: No Advance Directives Information Provided: Yes Current occupational status: employed Current occupation: [employer] Physical Exam Vital Signs: Vital Signs: Last Vital Signs Temp 97.8 F 05/23/23 16:29 Pulse 74 05/23/23 16:29 Resp 19 05/23/23 16:29 BP 133/88 05/23/23 16:29 Pulse Ox 98 05/23/23 16:29 O2 Del Method Room Air 05/23/23 16:29 BMI result Body Mass Index 28.1 Vital signs stable Const: General: cooperative, healthy appearing, comfortable and no acute distress Orientation/consciousness: patient oriented x3 Limitations: no limitations HEENT: Head: Yes normal to inspection, Yes normocephalic and Yes atraumatic Resp: Effort & Inspection: normal respiratory effort Auscultation: clear to auscultation bilaterally Cardio: Rate: regular rate Rhythm: regular rhythm Skin: Other: + refer to photos below + no rashes Neuro: Other: Sensation intact to light touch.? Neurovascular intact distally.? General: patient oriented x3 Extrem: Other: + please refer to photos of right hand below + Right hand/wrist diffusely swollen, no overlying erythema. There is a 1 cm scratch noted to the radial aspect of the dorsal right wrist. Hand/wrist is warm to the touch. Tender to palpation. No swelling of the right elbow joint. 2+ radial pulses. Unable to form a fist or completely open the hand. Unable to perform finger to thumb opposition due to swelling/pain. Course Course Course Narrative: 1057-- CBC without leukocytosis or left shift. Chronic normocytic anemia when compared to priors. H&H stable. Chemistry without acute electrolyte abnormality requiring intervention. Normal renal function. CRP elevated to 3.57. Uric acid WNL at 4.6 however this can be normal during acute gout attack > gout not ruled out. Awaiting x-ray results. 1216-- on re-evaluation, patient reports slight improvement in range of motion of his fingers on the right hand over the past 2 hours. Pain has slightly subsided after receiving Toradol and morphine. We are still awaiting x-ray results. 1348-- x-ray of the hand/wrist shows normalization within the TFCC cartilage which can be seen in the setting of chondrocalcinosis > this is consistent with pseudogout and patient will be treated accordingly. He has history of pseudogout in his left knee. X-rays also show equivocal sail sign and dedicated elbow radiograph is recommended if concern for elbow fracture. I discussed both of these results with the patient. He tells me that he has had right elbow discomfort for the past few months however does not recall any injury or trauma to the right elbow. Given that patient is symptomatic, will order a dedicated right elbow x-ray. Patient is agreeable with this. 1609-- Xray of the right elbow does not exhibit acute or chronic fracture. I have reviewed xray as well and agree with this interpretation. discussed all results with patient. rufus wrap will be applied to hand/wrist to help with swelling. prednisone and naproxen set to pharmacy for acute pseudogout flare. Patient has remained stable throughout ED visit today. Discussed worrisome signs and symptoms and when to return to the ED. All questions answered at this time. Patient is agreeable with disposition and stable for discharge. Medications Administered Discontinued Medications Generic Name Dose Route Start Last Admin Trade Name Krupa PRN Reason Stop Dose Admin Ketorolac Tromethamine 30 mg 05/23/23 09:33 05/23/23 09:42 Ketorolac Tromethamine 30 Mg/Ml Vial IM 05/23/23 09:34 30 mg ONCE ONE Administration Morphine Sulfate 4 mg 05/23/23 10:27 05/23/23 11:10 Morphine Sulfate 4 Mg/Ml Cartridge IVPUSH 05/23/23 10:28 4 mg ONCE ONE Administration Protocol Prednisone 40 mg 05/23/23 14:05 05/23/23 14:30 Prednisone 20 Mg Tablet PO 05/23/23 14:06 40 mg ONCE ONE Administration Medical Decision Making Medical Decision Making [facility] Narrative: 57 year old [id number] male with pmhx significant for celiac disease and pseudogout presents to the ED today for evaluation of swelling to right hand x3 days. Right hand/wrist diffusely swollen, no overlying erythema. There is a 1 cm scratch noted to the radial aspect of the dorsal right wrist. Hand/wrist is warm to the touch. Tender to palpation. No swelling of the right elbow joint. 2+ radial pulses. Unable to form a fist or completely open the hand. Unable to perform finger to thumb opposition due to swelling/pain. Differential diagnosis includes arthritis, cellulitis, tenosynovitis, pseudogout, gout, septic arthritis. Lower suspicion for thrombosis or Lyme arthritis. Plan for labs, imaging, pain control and re-evaluation. Differential Diagnosis Differential Diagnoses: The differential diagnosis associated with the presentation includes As above Admission/Observation not indicated. Lab Data [facility] Lab Attestation statement: I reviewed the patient's lab results. As above 05/23/23 09:39 05/23/23 09:39 Labs: Lab Results 05/23/23 Range/Units 09:39 WBC 7.2 (4.8-10.8) X10*3/uL RBC 4.08 L (4.60-5.80) X10*6/uL Hgb 12.9 L (14.0-18.0) g/dl Hct 36.4 L (42.0-52.0) % MCV 89.2 (80.0-98.0) fL MCH 31.6 (27.0-33.0) pg MCHC 35.4 (31.0-36.0) g/dl RDW 12.4 (11.0-16.0) % Plt Count 130 L (160-400) X10*3/uL MPV 8.3 L (9.4-12.4) fL Immature Gran % (Auto) 0.6 H (0.0-0.4) % Neut % (Auto) 72.9 (45-73) % Lymph % (Auto) 17.0 L (20-40) % [place] % (Auto) 7.5 (2-11) % Eos % (Auto) 1.4 (0-4) % Baso % (Auto) 0.6 (0-2) % Lymph # (Auto) 1.2 (1.2-4.9) X10*3/uL [place] # (Auto) 0.5 (0.1-1.2) X10*3/uL Eos # (Auto) 0.1 (0.0-0.4) X10*3/uL Baso # (Auto) 0.0 (0.0-0.2) X10*3/uL Abs Immat Gran (auto) 0.04 H (0.00-0.03) X10*3/uL Absolute Neuts (auto) 5.3 (2.0-8.3) x10*3/uL Absolute Nucleated RBC 0.000 (0.0-0.012) X10*3/uL Nucleated RBC % (auto) 0.0 (0.0-0.2) /100WBC ESR 34 H (0-15) MM/HR Sodium 141 (135-145) mmol/L Potassium 4.3 (3.3-5.1) mmol/L Chloride 104 (96-108) mmol/L Carbon Dioxide 28 (22-29) mmol/L Anion Gap 13 (12-20) BUN 12 (9-16) mg/dL Creatinine 0.99 (0.5-1.4) mg/dL Estim Creat Clear Calc 104.0 Estimated GFR > 60 Random Glucose 106 (60-115) mg/dL Uric Acid 4.6 (3.4-7.0) mg/dL Calcium 9.3 (8.4-10.2) mg/dL Magnesium 2.1 (1.6-2.6) mg/dL C-Reactive Protein 3.57 H (< or = 0.50) mg/dL Independent Interpretation I performed an independent interpretation of an: Plain X-Ray Interpretation: I personally reviewed x-rays and agree with radiologist's interpretation. Radiology Impression Discussion of test interpretation with radiology: I have reviewed the radiologist's reading. Radiologist Impression: EXAMINATION: XR forearm RT, XR hand wrist RT CLINICAL INFORMATION: Reason for Exam atraumatic swelling COMPARISON: Wrist radiograph 09/16/2012 TECHNIQUE: Two views of the forearm and 4 views of the wrist FINDINGS: Mineralization within the TFCC cartilage which can be seen in the setting of chondrocalcinosis. Small triceps tendon enthesophyte. Subchondral cystic change in the lunate. The lateral view of the forearm is limited by degree of obliquity, and there is an equivocal sail sign which can be seen in setting of joint effusion and occult fracture, recommend correlation with dedicated elbow radiographs if any concern for elbow fracture. No acute fracture or dislocation in the wrist. XR/XR forearm RT 2V IMPRESSION: 1. The lateral view of the forearm is limited by degree of obliquity, and there is an equivocal sail sign which can be seen in setting of joint effusion and occult fracture, recommend correlation with dedicated elbow radiographs if any concern for elbow fracture. 2. Mineralization within the TFCC cartilage which can be seen in the setting of chondrocalcinosis. 3. Degenerative changes of the wrist and elbow. EXAMINATION: XR ELBOW, RIGHT CLINICAL INFORMATION: Rule out elbow fracture COMPARISON: Same day forearm radiographs. TECHNIQUE: AP, lateral, and oblique views of the right elbow. FINDINGS: No acute fracture or dislocation. Joint spaces are maintained. Soft tissues are unremarkable. No joint effusion. XR/XR elbow RT min 3V IMPRESSION: * No acute osseous abnormality or joint effusion. External Record Review External record reviewed: Inpatient record, Office record, Outpatient record, Prior outpatient labs, Prior outpatient radiology, Primary care record and Outside ED record Prescription Management I considered prescription management with: Pain Medication and Other (prednisone) Chronic Conditions Patient?s care impacted by: Other (Pseudogout) Social Determinants Patient?s care significantly limited by Social Determinants of Health including: Other Social Determinant of Health Procedures Orthopedic Splinting/Casting Injury #1: Side: right Upper Extremity Injury Location: wrist Upper Extremity Immobilizer: Rufus wrap Critical Care Time Critical Care Time Critical Care Time: Yes Total Critical Care Time: 35 Attestation: Critical care time in the amount of 35 minutes has been provided to the patient in terms of direct patient care, frequent reevaluation on IV morphine, review and interpretation of medical data and results, and management of potentially life-threatening conditions. This is all outside of any medical procedures. Discharge Plan Discharge Clinical Impression: Pseudogout of right wrist, Calcium pyrophosphate deposition disease Patient Disposition: Home, Self-Care Instructions: Pseudogout (ED) Additional Instructions: X-rays of your right hand/wrist demonstrate chronic degenerative changes along with chondrocalcinosis. In other words, there is calcium deposition within the joint/cartilage associated with calcium pyrophosphate deposition disease (better known as pseudogout). Naproxen as an anti-inflammatory that has been sent to your pharmacy. Take this as needed for pain/swelling over the next week. Prednisone as a steroid that has been sent to your pharmacy. Take 40 mg daily for the next 5 days to help with inflammation/ swelling. Follow up with your PCP as needed. Please return to the ED with new or worsening symptoms. In the case of an emergency call 911. Additionally, x-ray of your right forearm suggested possible fracture of the elbow. X-rays of your right elbow were obtained which do not show acute fracture or effusion. Prescriptions: New naproxen 500 mg tablet 500 mg PO Q8-12H PRN (Reason: pain (scale score 4-6)) Qty: 14 0RF prednisone 20 mg tablet 40 mg PO DAILY 5 Days Qty: 10 0RF No Action naproxen 500 mg tablet 500 mg PO BID Qty: 20 0RF prednisone 20 mg tablet 40 mg PO DAILY Qty: 10 0RF Stand Alone Forms: Work/School Release Interventions: ED Discharge Assessment Last Done: 05/23/23 16:29 Discharge Date/Time: 05/23/23 16:30
[2023-05-23] MEDS: Ketorolac Tromethamine 30 MG/ML VIAL IM (09:42)
[2023-05-23 09:45] LABS: MANUAL DIFF FLAG NO
[2023-05-23 09:47] LABS: Basophils Percent Auto 0.6 % (0-2); Eosinophils Absolute Auto 0.1 X10*3/uL (0.0-0.4); Eosinophils Percent Auto 1.4 % (0-4); Hematocrit 36.4 % (42.0-52.0); Hemoglobin 12.9 g/dl (14.0-18.0); Imm Gran Abs Auto 0.04 X10*3/uL (0.00-0.03); Imm Gran Pct Auto 0.6 % (0.0-0.4); Lymphocytes Absolute Auto 1.2 X10*3/uL (1.2-4.9); Mean Corpuscular HGB Conc 35.4 g/dl (31.0-36.0); Mean Corpuscular Hemoglobin 31.6 pg (27.0-33.0); Mean Corpuscular Volume 89.2 fL (80.0-98.0); Mean Platelet Volume 8.3 fL (9.4-12.4); Monocytes Absolute Auto 0.5 X10*3/uL (0.1-1.2); Monocytes Percent Auto 7.5 % (2-11); Neutrophils Absolute Auto 5.3 x10*3/uL (2.0-8.3); Neutrophils Percent Auto 72.9 % (45-73); Platelet Count 130 X10*3/uL (160-400); Red Blood Count 4.08 X10*6/uL (4.60-5.80); Red Cell Distribution Width 12.4 % (11.0-16.0); White Blood Count 7.2 X10*3/uL (4.8-10.8)
[2023-05-23 10:02] LABS: Anion Gap 13 (12-20); Blood Urea Nitrogen 12 mg/dL (9-16); C Reactive Protein 3.57 mg/dL (< or = 0.50); Calcium 9.3 mg/dL (8.4-10.2); Carbon Dioxide 28 mmol/L (22-29); Chloride 104 mmol/L (96-108); Estimated Glomerular Filt Rate > 60; Glucose Random 106 mg/dL (60-115); Magnesium 2.1 mg/dL (1.6-2.6); Potassium 4.3 mmol/L (3.3-5.1); Sodium 141 mmol/L (135-145); Uric Acid 4.6 mg/dL (3.4-7.0)
[2023-05-23] MEDS: Morphine Sulfate 4 MG/ML CARTRIDGE IVPUSH (11:10)
[2023-05-23 11:52] LABS: Erythrocyte Sedimentation Rate 34 MM/HR (0-15)
[2023-05-23 12:09] VITALS: BP 124/78; PULSE 62; RESP 16; TEMP 36.6; O2SAT 96
[2023-05-23] MEDS: predniSONE 20 MG TABLET 40 MG PO (14:30)
[2023-05-23 15:09] VITALS: BP 126/72; PULSE 63; RESP 19; TEMP 36.8; O2SAT 98
[2023-05-23 16:29] VITALS: BP 133/88; PULSE 74; RESP 19; TEMP 36.6; O2SAT 98
== END 2023-05-23 16:30 | disposition home or self-care (01) ==
PROVIDERS: Physician Assistant Medical; Emergency Provider Emergency Medicine; PCP Internal Medicine
DX: M25.831 Other specified joint disorders, right wrist (principal)
CPT/HCPCS: 36415; 73080; 73090; 73110; 73130; 80048; 83735; 84550; 85025; 85652; 86140; 96372; 96374; 99284; J1885; J2270

== ENCOUNTER 2024-08-28 16:40 | Outpatient (AMB) | payer OTHER, SELFPAY ==
--- NOTE | 2024-08-28 16:42 | MHC.PC.OV ---
Vital Signs 08/28/24 16:48 Height 6 ft 4 in Weight 102.512 kg BMI 27.5 Pulse 95 Pulse Source Pulse Oximeter Temp 97.0 F Temp Source Temporal Artery Scan Pulse Oximetry (%) 93 Oxygen Delivery Method Room Air Intake Visit Reasons: Annual Manager Assessment Required: No Accompanied by: Spouse Allergies albuterol Allergy (Mild, Verified 08/28/24 16:46) Hives gluten Adverse Reaction (Mild, Verified 08/28/24 16:46) Abdominal Pain HPI HPI Comments History of Present Illness Details 58-year-old male with history of hyperlipidemia, gynecomastia, pseudogout, celiac sprue, osteoarthritis presents to the office today accompanied by his , Julianne, for management of chronic conditions and for annual physical exam. He currently lives at home with his and feels safe there. 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 Consumes alcohol several days per week. He is a former smoker with a 12 year pack-year history, quit over 5 years ago. No illicit drug use or marijuana use. He does not formally exercise but is very active his job. Hyperlipidemia-not on statin. Previously ASCVD low. Pseudogout-episodic in left knee and hand. Uses ice and ibuprofen with good relief of symptoms. Currently asymptomatic. Gynecomastia-has undergone mammogram and excision of mass. No further issues. Celiac sprue-avoids triggering foods Osteoarthritis-managed conservatively. Concerns: Woke up with a rash on the bilateral upper and lower extremities. Otherwise no recent illness or current upper respiratory symptoms. There was no pruritus or pain. No recent travel or recent illness. No associated symptoms though does endorse fatigue but this has been ongoing for several months. He is sleeping well. Health maintenance: Last colonoscopy 07/05/2015 with 10 year follow-up advised. Dr. Cook Due for screening PSA Up-to-date on eye exams Reviewed past medical, social, family, surgical history ROS: General: No fevers, malaise, unintentional weight loss. See HPI HEENT: No blurred vision, diplopia. No sore throat, nasal congestion, rhinorrhea, sinus pain, ear pain Neck - no adenopathy Cardiovascular: No chest pain, palpitations, or leg edema Respiratory: No shortness of breath, wheezing, cough GI: No abdominal pain, nausea, vomiting, diarrhea, constipation, melena, hematochezia : No dysuria, hematuria, increased urinary frequency, decreased urinary output MSK: No myalgia, back pain. See HPI Neuro: No headaches, weakness, paresthesias Psych: no depression/anxiery. No AH/VH. No SI/HI Skin: See HPI EXAM: Constitutional - Awake and Alert, No apparent distress Eyes - PERRLA, EOMI. Anicteric Nose- septum midline, nares clear, no sinus tenderness Mouth/throat- mucosa moist, tongue and uvula midline, no erythema/edema or tonsillar adenopathy. Neck-trachea midline, thyroid symmetric without palpable nodules, no adenopathy Cardiovascular - S1S2, RRR, No edema Respiratory - Normal lung expansion, Normal respiratory effort, No respiratory distress, CTA bilaterally Gastrointestinal - NT / ND; +BS; No rebound or guarding - No CVA tenderness Extremities - no calf tenderness bilaterally, no swelling Musculoskeletal - Normal inspection, normal ROM Skin - Warm/Dry. Palpable nonblanching purpora bilateral upper and lower extremities bilaterally Neurological - Alert & oriented x3, CN II-XII in tact, 5/5 strength BUE and BLE Psychological - Appropriate affect PFSH Medical History (Updated 08/29/24 @ 10:28 by FELICITY Zhang) HLD (hyperlipidemia) Celiac disease Family history of ovarian cancer Family history of breast cancer Gynecomastia Surgical History (Updated 08/24/24 @ 17:07 by Michelle Felix) History of colonoscopy (~07/05/15) History of excision of mass (~01/17/20) History of breast lump/mass excision History of eye surgery Family History Father History of prostate cancer Mother History of ovarian cancer Sister History of breast cancer Sister History of lung cancer Maternal Uncle History of lung cancer Social History Alcohol intake: current Alcohol intake frequency: a few times a week Alcohol type: beer Years Smoked: 12 Current occupational status: employed Current occupation: [employer] Questionnaire PHQ-9 Over the last 2 weeks, how often have you been bothered by any of the following problems? 1. Little interest or pleasure in doing things: several days 2. Feeling down, depressed, or hopeless: several days 3. Trouble falling or staying asleep, or sleeping too much: not at all 4. Feeling tired or having little energy: nearly every day 5. Poor appetite or overeating: not at all 6. Feeling bad about yourself - or that you are a failure or have let yourself or your family down: not at all 7. Trouble concentrating on things, such as reading the newspaper or watching television: several days 8. Moving or speaking so slowly that other people could have noticed. Or the opposite - being so fidgety or restless that you have been moving around a lot more than usual: not at all 9. Thoughts that you would be better off or of hurting yourself in some way: not at all Total score: 6 Source: Developed by Drs. Joe Alonzo, Laurel Moncada, Eugene Julian and colleagues, with an educational paola from [employer]. Thrive Questionnaire Date Thrive assessed: 08/28/24 I am a: Patient What is your living situation today?: I have a steady place to live Within the past 12 months, did the food you bought not last and you didn't have the money to get more?: Never true Within the past 12 months, did you worry whether your food would run out before you got money to buy more?: Never true Do you have trouble paying for medicines?: No Do you have trouble getting transportation to medical appointments?: No Do you have trouble paying your heating and electricity bill?: No Do you have trouble taking care of your child, family member or friend?: No Do you have trouble with day-to-day activities such as bathing, preparing meals, shopping, managing finances, etc.?: No Are you currently unemployed and looking for a job?: No Are you interested in more education?: No Please select the resources that you would like help with: None THRIVE Score: 0 AIYANA-7 AMB Questionnaire AIYANA-7 Date AIYANA - 7 assessed: 08/28/24 Feeling nervous, anxious, or on edge: 0 = Not at all Not being able to stop or control worryin = Not at all Worrying too much about different things: 0 = Not at all Trouble relaxin = Not at all Being so restless that it is hard to sit still: 0 = Not at all Becoming easily annoyed or irritable: 0 = Not at all Feeling afraid as if something awful might happen: 0 = Not at all Total AIYANA-7 score (0-4 normal; 5-9 mild; 10-14 moderate; 15-21 severe): 0 Source: Developed by Drs. Joe Alonzo, Laurel Moncada, Eugene Julian and colleagues, with an educational paola from [employer]. Physical exam (Primary Care) Vital Signs: Last Vital Signs Temp 97.0 F 08/28/24 16:48 Pulse 95 08/28/24 16:48 Pulse Ox 93 08/28/24 16:48 Oxygen Delivery Method Room Air 08/28/24 16:48 BMI result Body Mass Index 27.5 PHQ-9: PHQ-9 Score PHQ-9: Total score 6 08/28/24 17:19 Thrive Assessment: Date of Thrive Assessment Date Thrive assessed 08/28/24 08/28/24 17:19 Coding Level of Care Code Est Pt Level 4 (50504) Est Pt Prev Care 40-64y(33223) Diagnoses Routine medical exam Z00.00 Palpable purpura D69.2 HLD (hyperlipidemia) E78.5 Pseudogout of left knee M11.262 Fatigue R53.83 Assessment & Plan Assessment & Plan (1) Routine medical exam: Code(s): Z00.00 - Encounter for general adult medical examination without abnormal findings Category: Medical Plan: 58-year-old male presenting for annual physical exam. Plan as below (2) Palpable purpura: Code(s): D69.2 - Other nonthrombocytopenic purpura Category: Medical Plan: Given exam findings, concern for vasculitis. Inflammatory markers including CRP and ESR ordered. Will also check SUMAYA and ANCA as he does have history of autoimmune disease. He is referred for stat biopsy. Hold on empiric steroids at this time. We will check platelet counts, does have chronic thrombocytopenia but mild and has been stable. Given clinical presentation, low suspicion for ITP (3) HLD (hyperlipidemia): Code(s): E78.5 - Hyperlipidemia, unspecified Category: Medical Plan: Lipid panel ordered. ASCVD risk score to be calculated pending results of studies. (4) Pseudogout of left knee: Code(s): M11.262 - Other chondrocalcinosis, left knee Category: Medical Plan: Stable.. (5) Fatigue: Code(s): R53.83 - Other fatigue Category: Medical Plan: Check TSH as well as vitamin levels. Will also check testosterone free/total Plan Routine screening labs as ordered below Continue with screening colonoscopies and PSA Continue following for annual skin exams and use sun protection Annual eye exams Wear seat belt in car Recommend regular exercise and healthy diet Follow up in 1 year for annual exam. Orders: Orders Lipid Panel Today D69.2 - Other nonthrombocytopenic purpura, Z00.00 - Encounter for general adult medical examination without abnormal findings Prostate Specific Antigen Today D69.2 - Other nonthrombocytopenic purpura, Z00.00 - Encounter for general adult medical examination without abnormal findings Erythrocyte Sedimentation Rate Today D69.2 - Other nonthrombocytopenic purpura, Z00.00 - Encounter for general adult medical examination without abnormal findings C Reactive Protein Today D69.2 - Other nonthrombocytopenic purpura, Z00.00 - Encounter for general adult medical examination without abnormal findings TSH reflex Free T4 Today R53.83 - Other fatigue Vitamin D 25-OH Total Today R53.83 - Other fatigue SUMAYA Reflex Titer and Pattern Today D69.2 - Other nonthrombocytopenic purpura Testosterone, Free/Total Today N62 - Hypertrophy of breast, R53.83 - Other fatigue Basic Metabolic Panel Today D69.2 - Other nonthrombocytopenic purpura, Z00.00 - Encounter for general adult medical examination without abnormal findings Complete Blood Count Auto Diff Today D69.2 - Other nonthrombocytopenic purpura, Z00.00 - Encounter for general adult medical examination without abnormal findings Hemoglobin A1c Today D69.2 - Other nonthrombocytopenic purpura, Z00.00 - Encounter for general adult medical examination without abnormal findings Liver Panel Today D69.2 - Other nonthrombocytopenic purpura, Z00.00 - Encounter for general adult medical examination without abnormal findings Vitamin B12 Today R53.83 - Other fatigue Rheumatoid Factor Today D69.2 - Other nonthrombocytopenic purpura ANCA Vasculitides Today D69.2 - Other nonthrombocytopenic purpura Referrals General Surgery Referral D69.2 - Other nonthrombocytopenic purpura, I77.6 - Arteritis, unspecified
[2024-08-28 16:48] VITALS: PULSE 95; TEMP 36.1; O2SAT 93; BMI 27.5
--- OUTSIDE RECORDS SUMMARY | 2024-08-28 17:44 | XMS_ITS | Patient Health Record ---
Author Organization [facility] Address [address] [place] [id number] Care Team Providers Care Recreational Therapist Name Role Phone Reynaldo Horne MD Primary Care Provider Jessicaa Joe Washburn Unavailable [phone] Reason For Referral No Information Medications Medication SIG (Take, Route, Fr equency, Duration) Notes Start Date End Date Status Ibuprofen 200 MG 1 tablet as needed Orally prn Active Problems Problem Type SNOMED Code ICD Code Onset Dates Problem Status W/U Status Risk Notes Problem 052059995 Encounter for screening for malignant neoplasm of colon (Z12.11) Active confirmed Problem 040736415 History of adenomatous polyp of colon (Z86.010) Active confirmed Problem Screening for malignant neoplasm of rectum (292323563) Encounter for screening for malignant neoplasm of rectum (Z12.12) Active confirmed Problem 41367986 Preprocedural examination (Z01.818) Active confirmed Plan Of Treatment Pending Test Test Name Order Date GI BIOPSY 07/05/2015 Future Test Test Name Order Date COLONOSCOPY 04/24/2015 Insurance Providers Payer Name Payer Address Payer Phone Subscriber Number Group Number Insured Name Patient Relationship to Insured Coverage Start Date Coverage End Date [facility] [address] [place] [phone] [id number] ROULA DAVIS Self - patient is the insured Medical (General) History Medical History History ICD Code Colonoscopy 10-22-2005--1 sma ll tubular adenoma removed, small internal hemorrhoids Denies [place],DM,CVA,Lung disease,renal dise ase Sciatica Surgical History Surgery Date(Month/Year) Right eye surgery for diplopia 2010
== END 2024-08-28 17:18 | disposition home or self-care (01) ==
LOC: HO.HMCHD 16:41
PROVIDERS: PCP Physician Assistant; Visit Provider Physician Assistant
DX: Z00.00 Encounter for general adult medical examination without abnormal findings (principal); E78.5 Hyperlipidemia, unspecified; D69.2 Other nonthrombocytopenic purpura; M11.262 Other chondrocalcinosis, left knee; R53.83 Other fatigue

== ENCOUNTER 2024-08-29 06:03 | Outpatient (REF) | payer OTHER, SELFPAY ==
[2024-08-29 06:18] LABS: MANUAL DIFF FLAG NO
[2024-08-29 07:20] LABS: Basophils Percent Auto 0.5 % (0-2); Eosinophils Absolute Auto 0.1 X10*3/uL (0.0-0.4); Eosinophils Percent Auto 0.9 % (0-4); Hematocrit 40.3 % (42.0-52.0); Hemoglobin 13.6 g/dl (14.0-18.0); Imm Gran Abs Auto 0.03 X10*3/uL (0.00-0.03); Imm Gran Pct Auto 0.5 % (0.0-0.4); Lymphocytes Absolute Auto 1.6 X10*3/uL (1.2-4.9); Lymphocytes Percent Auto 25.5 % (20-40); Mean Corpuscular HGB Conc 33.7 g/dl (31.0-36.0); Mean Corpuscular Hemoglobin 30.2 pg (27.0-33.0); Mean Corpuscular Volume 89.6 fL (80.0-98.0); Mean Platelet Volume 8.6 fL (9.4-12.4); Monocytes Absolute Auto 0.6 X10*3/uL (0.1-1.2); Monocytes Percent Auto 8.9 % (2-11); Neutrophils Absolute Auto 4.1 x10*3/uL (2.0-8.3); Neutrophils Percent Auto 63.7 % (45-73); Platelet Count 139 X10*3/uL (160-400); White Blood Count 6.4 X10*3/uL (4.8-10.8)
[2024-08-29 07:32] LABS: Estimated Average Glucose 111 mg/dL; Hemoglobin A1c % 5.5 % (<6.0)
[2024-08-29 07:58] LABS: Erythrocyte Sedimentation Rate 11 MM/HR (0-15)
[2024-08-29 08:00] LABS: Rheumatoid Factor < 13.0 IU/mL (<15.0)
[2024-08-29 08:04] LABS: Alanine Aminotransferase 16 U/L (0-40); Albumin Level 4.2 g/dL (3.5-5.0); Alkaline Phosphatase 70 U/L (39-117); Anion Gap 12 (12-20); Aspartate Amino Transferase 31 U/L (5-37); Bilirubin Direct 0.2 mg/dL (0.0-0.5); Bilirubin Total 0.6 mg/dL (0.0-1.0); Blood Urea Nitrogen 16 mg/dL (9-16); Calcium 9.2 mg/dL (8.4-10.2); Carbon Dioxide 24 mmol/L (22-29); Chloride 105 mmol/L (96-108); Cholesterol 184 mg/dL (<200); Estimated Glomerular Filt Rate > 60; Glucose Random 111 mg/dL (60-115); HDL Cholesterol 48 mg/dL (>40); LDL Cholesterol Calculated 123 mg/dL (<100); Potassium 3.8 mmol/L (3.3-5.1); Sodium 137 mmol/L (135-145); Total Protein 7.1 g/dL (6.5-8.0); Triglycerides 67 mg/dL (<150)
[2024-08-29 08:08] LABS: TSH reflex Free T4 1.92 uIU/mL (0.32-4.0); Vitamin D 25-OH Total 22.3 ng/mL (>30)
[2024-08-29 08:21] LABS: Prostate Specific Antigen 0.34 ng/mL (<0.05-4.0); Vitamin B12 340 pg/mL (200-900)
[2024-08-31 22:39] LABS: Myeloperoxidase Antibody <1.0 AI; Proteinase 3 PR3 Antibodies <1.0 AI
[2024-09-01 14:38] LABS: Anti Nuclear Antibody Pattern Nuclear, Nucleolar; Anti Nuclear Antibody Screen POSITIVE (NEGATIVE)
[2024-09-03 14:59] LABS: Testosterone, Free 63.6 pg/mL (35.0-155.0); Testosterone, Total 530 ng/dL (250-1100)
== END 2024-08-29 06:04 | disposition home or self-care (01) ==
LOC: HO.LAB 06:03
PROVIDERS: PCP Physician Assistant; Visit Provider Physician Assistant
DX: Z00.00 Encounter for general adult medical examination without abnormal findings (principal); N62 Hypertrophy of breast; R53.83 Other fatigue; D69.2 Other nonthrombocytopenic purpura; Z12.5 Encounter for screening for malignant neoplasm of prostate; Z13.1 Encounter for screening for diabetes mellitus; Z13.6 Encounter for screening for cardiovascular disorders
CPT/HCPCS: 11104; 36415; 80048; 80061; 80076; 82306; 82607; 83036; 84153; 84402; 84403; 84443; 85025; 85652; 86021; 86038; 86039; 86140; 86431

== ENCOUNTER 2024-08-29 15:17 | Outpatient (AMB) | payer OTHER, SELFPAY ==
[2024-08-29 15:26] VITALS: BP 122/72; PULSE 73; BMI 27.5
--- NOTE | 2024-08-29 15:26 | A.OFFVIS_ITS ---
Vital Signs 08/29/24 15:26 Height 6 ft 4 in Weight 226 lb BMI 27.5 BP 122/72 Blood Pressure Location Rt brachial Position Sitting Pulse 73 Intake Visit Reasons: stat BX for suspected vasculitis Intake Note: Patient referred for punch biopsy. Developed red dot rash yesterday. Patient c/o: leg spots burn, mild itch. No hx of eczema, psoriasis. Teasel Gig Operator Required: No Accompanied by: Self / Same As Patient Allergies albuterol Allergy (Mild, Verified 08/29/24 15:29) Hives gluten Adverse Reaction (Mild, Verified 08/29/24 15:29) Abdominal Pain Medication List - Last Reconciled 08/29/24 by Mart Myers MD No Known Home Meds HPI Comments Details: 58-year-old male patient presenting with a 1 day history of rash involving both upper and lower extremities. He denies any recent contacts with chemicals or other exposures. He does work in [employer] but denies anything out of the extraordinary at work. He reports that the rashes itchy and initially thought they were mosquito bites. He also reports a history of headaches and fatigue. He presents today for punch biopsy of the skin lesion to rule out vasculitis or pityriasis rosacea. [facility] Medical History HLD (hyperlipidemia) Celiac disease Family history of ovarian cancer Family history of breast cancer Gynecomastia Surgical History History of colonoscopy (~07/05/15) History of excision of mass (~01/17/20) History of breast lump/mass excision History of eye surgery Family History Father History of prostate cancer Mother History of ovarian cancer Sister History of breast cancer Sister History of lung cancer Maternal Uncle History of lung cancer Social History Alcohol intake: current Alcohol intake frequency: a few times a week Alcohol type: beer Years Smoked: 12 Current occupational status: employed 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 Review of Systems Const All systems reviewed & are unremarkable except as noted in HPI and below Physical Exam Vital Signs: Last Vital Signs Pulse 73 08/29/24 15:26 BP 122/72 06/24/25 15:26 BMI result Body Mass Index 27.5 Const General: comfortable Nutritional Appearance: well nourished Orientation/consciousness: patient oriented x3 Limitations: no limitations Resp Effort & Inspection: normal respiratory effort GI Inspection: Yes normal to inspection Skin Other: See extremities below Neuro General: patient oriented x3 Extrem Other: Multiple small red slightly raised skin lesions involving the upper and lower ex tremities of various sizes all pink to red in color. No ulceration or bleeding noted. Office Procedures Punch Biopsy Punch Biopsy Details: Preoperative diagnosis: Diffuse rash of extremities, possible vasculitis Postoperative diagnosis: Same Procedure: Punch biopsy right upper extremity rash Surgeon: Mart Myers MD Die Cast Technician: None Anesthesia: Lidocaine 1% with epinephrine Indications for procedure: 1 day history of a diffuse rash involving the for and lower extremities suspicious for vasculitis Operative findings: Diffuse rash as noted above Specimen: 4 mm punch biopsy right upper extremity Estimated blood loss: 0 Complications: None Procedure details: Patient was brought to the procedure room and placed in a supine position. After assuring informed consent the skin was prepped with Betadine and draped in a sterile fashion. Local anesthesia consisting of 1% lidocaine with epinephrine was then infiltrated at 1 of the lesions located in the anterior right forearm. A 4 mm punch biopsy was then performed and sent to pathology for further examination. A single 4-0 nylon suture was then placed followed by bandage. The patient tolerated the procedure well we will return in 1 week for suture removal. [id number] Biopsy Skin, single lesion All charges added?: Procedure code (CPT) selection complete Assessment & Plan Assessment & Plan (1) Palpable purpura: Code(s): D69.2 - Other nonthrombocytopenic purpura Category: Medical Plan Patient presents today for skin biopsy to evaluate for vasculitis. He tolerated the procedure well and will return in 1 week for suture removal. Orders: Orders Surgical Today D69.2 - Other nonthrombocytopenic purpura Coding Level of Care Code New Pt Level 4 (43553) Diagnoses Palpable purpura D69.2 CPT Codes Punch Biopsy - Punch 1: [id number] Biopsy Skin, single lesion ([id number])
--- OUTSIDE RECORDS SUMMARY | 2024-08-29 18:30 | XMS_ITS | Patient Health Record ---
Author Organization [facility] Address [address] [place] [id number] Care Team Providers Care Rug Drying Machine Operator Name Role Phone Reynaldo Horne MD Primary Care Provider Jessicaa Joe Washburn Unavailable [phone] Reason For Referral No Information Medications Medication SIG (Take, Route, Fr equency, Duration) Notes Start Date End Date Status Ibuprofen 200 MG 1 tablet as needed Orally prn Active Problems Problem Type SNOMED Code ICD Code Onset Dates Problem Status W/U Status Risk Notes Problem 323140072 Encounter for screening for malignant neoplasm of colon (Z12.11) Active confirmed Problem 136829903 History of adenomatous polyp of colon (Z86.010) Active confirmed Problem Screening for malignant neoplasm of rectum (436506689) Encounter for screening for malignant neoplasm of rectum (Z12.12) Active confirmed Problem 15106945 Preprocedural examination (Z01.818) Active confirmed Plan Of Treatment Pending Test Test Name Order Date GI BIOPSY 07/05/2015 Future Test Test Name Order Date COLONOSCOPY 04/24/2015 Insurance Providers Payer Name Payer Address Payer Phone Subscriber Number Group Number Insured Name Patient Relationship to Insured Coverage Start Date Coverage End Date [facility] [address] [place] [address] [id number] ROULA DAVIS Self - patient is the insured Medical (General) History Medical History History ICD Code Colonoscopy 10-22-2005--1 sma ll tubular adenoma removed, small internal hemorrhoids Denies [place],DM,CVA,Lung disease,renal dise ase Sciatica Surgical History Surgery Date(Month/Year) Right eye surgery for diplopia 2010
== END 2024-08-29 15:44 | disposition home or self-care (01) ==
LOC: HO.HGS 15:17
PROVIDERS: PCP Physician Assistant; Visit Provider Surgery
DX: D69.2 Other nonthrombocytopenic purpura (principal)
CPT/HCPCS: 11104; 99204

== ENCOUNTER 2024-08-29 15:44 | Outpatient (REF) | payer OTHER, SELFPAY | END 2024-08-29 15:45 | disposition home or self-care (01) | LOC: HO.LNP 15:44 | PROVIDERS: Visit Provider Surgery | DX: D69.2 Other nonthrombocytopenic purpura (principal) | CPT/HCPCS: 88304; 88305; 88312 ==

== ENCOUNTER 2024-09-29 11:43 | Outpatient (AMB) | payer OTHER, SELFPAY ==
--- NOTE | 2024-09-29 11:46 | MHC.PC.OV ---
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 He is accompanied by his , Julianne. At last visit presented with palpable purpura. Stat biopsy revealed spongiotic dermatitis. He saw dermatology. SUMAYA low titer positive. Chronic arthritis -no increase in joint pain. Does have rheumatology appointment in the fall. Rash has resolved His concern today is headache, dizziness, nausea since Mar. Reports some double vision especially when looking downward. He has overwhelming fatigue. dizziness not positional. Can wake up with headaches or develop during the day. Reports memory issues over the past few years. Hyperlipidemia-not on statin. Previously ASCVD low. Pseudogout-episodic in left knee and hand. Uses ice and ibuprofen with good relief of symptoms. Currently asymptomatic. Gynecomastia-has undergone mammogram and excision of mass. No further issues. Celiac sprue-avoids triggering foods. No increase in GI symptoms. He previously was seen by Dr Cook. He has mild anemia Osteoarthritis-managed conservatively. Health maintenance: Last colonoscopy 07/05/2015 with 10 year follow-up advised. Dr. Cook ROS see HPI PHYSICAL EXAM: GENERAL: Alert and oriented x 3. NAD EYES: EOMI. Anicteric. HENT: Moist mucous membranes. No scleral icterus. No cervical lymphadenopathy. LUNGS: Clear to auscultation bilaterally. CARDIOVASCULAR: Regular rate and rhythm. No murmur. No JVD. ABDOMEN: Soft, non-tender +bs EXTREMITIES: No edema. Non-tender. SKIN: No rashes or lesions. Warm. NEUROLOGIC: No focal neurological deficits. CN II-XII grossly intact PSYCHIATRIC: Cooperative. Appropriate mood and affect [facility] Medical History HLD (hyperlipidemia) Celiac disease Family history of ovarian cancer Family history of breast cancer Gynecomastia Surgical History History of colonoscopy (~07/05/15) History of excision of mass (~01/17/20) History of breast lump/mass excision History of eye surgery Family History Father History of prostate cancer Mother History of ovarian cancer Sister History of breast cancer Sister History of lung cancer Maternal Uncle History of lung cancer Social History Alcohol intake: current Alcohol intake frequency: a few times a week Alcohol type: beer Patient Tobacco Use Status: Former Tobacco user Years Smoked: 12 e-Cigarette/Vaping Use: Never Used Current occupational status: employed Current occupation: [id number] Thrive Questionnaire Date Thrive assessed: 08/28/24 AUDIT C Alcohol Use Questionnaire (AUDIT-C) 1. How often do you have a drink containing alcohol?: Monthly or less 2. How many drinks containing alcohol do you have on a typical day when you are drinking?: 1 or 2 Total Score: 1 AIYANA-7 AMB Questionnaire AIYANA-7 Date AIYANA - 7 assessed: 08/28/24 Source: Developed by Drs. Joe Alonzo, Laurel Moncada, Eugene Julian and colleagues, with an educational paola from [employer]. Physical exam (Primary Care) Vital Signs: Last Vital Signs Temp 97.2 F 09/29/24 11:49 Pulse 70 09/29/24 11:49 Resp 16 09/29/24 11:49 BP 118/62 09/29/24 11:49 Pulse Ox 97 09/29/24 11:49 Oxygen Delivery Method Room Air 09/29/24 11:49 BMI result Body Mass Index 19.2 Tobacco/Smoking Status: Tobacco use Status Tobacco use date assessed 09/29/24 09/29/24 11:49 Patient Tobacco Use Status Former Tobacco user 09/29/24 11:52 e-Cigarette/Vaping Use Never Used 09/29/24 11:49 Thrive Assessment: Date of Thrive Assessment Date Thrive assessed 08/28/24 09/29/24 11:49 Coding Level of Care Code Est Pt Level 4 (30813) Complex EM visit Add On G2211 Diagnoses New onset of headaches R51.9 Fatigue, unspecified type R53.83 Fatigue type: unspecified Double vision H53.2 Assessment & Plan Assessment & Plan (1) New onset of headaches: Code(s): R51.9 - Headache, unspecified Category: Medical (2) Fatigue: Code(s): R53.83 - Other fatigue Category: Medical Qualifiers: Fatigue type: unspecified Qualified Code(s): R53.83 - Other fatigue (3) Double vision: Code(s): H53.2 - Diplopia Category: Medical Plan Headaches, fatigue, vision changes, nausea Check MRI to rule out lesion, MS etc Labs ordered Referral to neurology, sleep study, ophtho Anemia, fatigue-referral GI Orders: Orders Tick-borne Disease Molecular Today H53.2 - Diplopia, R51.9 - Headache, unspecified, R53.83 - Other fatigue Vitamin B12 and Folate Today H53.2 - Diplopia, R51.9 - Headache, unspecified, R53.83 - Other fatigue MR head/brain wo con Today H53.2 - Diplopia, R51.9 - Headache, unspecified, R53.83 - Other fatigue RT home sleep study Today H53.2 - Diplopia, R51.9 - Headache, unspecified Lyme IgG/IgM w/reflex to WB Today H53.2 - Diplopia, R51.9 - Headache, unspecified, R53.83 - Other fatigue IRON PROFILE Today H53.2 - Diplopia, R51.9 - Headache, unspecified, R53.83 - Other fatigue Referrals Gastroenterology Referral D64.9 - Anemia, unspecified, K90.0 - Celiac disease Neurology Referral H53.2 - Diplopia, R51.9 - Headache, unspecified, R53.83 - Other fatigue Ophthalmology Referral H53.2 - Diplopia, R51.9 - Headache, unspecified
--- OUTSIDE RECORDS SUMMARY | 2024-09-29 11:47 | XMS_ITS | Patient Health Record ---
Author Organization [facility] Address [address] [place] [address] Care Team Providers Care Care Tech Name Role Phone Reynaldo Horne MD Primary Care Provider Sheryl Machado Unavailable [phone] Allergies Allergen (clinical drug ingredient) Drug/Non Drug Allergy documented on EMR Reaction Allergy Type Onset Date Status amoxicillin Amoxicillin hives Drug Allergy Act alex Reason For Referral No Information Immunizations Vaccine Route Administration Date Status Comme nts COVID-19 Pfizer BioNTech Vaccine Unknown 06/14/2020 Administered First Dose: Social History Tobacco Use: Social History Observation Description Date Details (start date - stop date) Never Smoker NA - NA Tobacco Use/Smoking Question Answer Notes Are you a: nonsmoker Additional Findings: Tobacco Non-User Aggressive non-smoker Alcohol Screen Question Answer Notes Did you have a drink contain ing alcohol in the past year? Yes How often did you have a dri nk containing alcohol in the past year? 4 or more times a week (4 points) Points 4 Interpretation Positive Tobacco use other than smoking: Question Answer Notes Are you an other tobacco user? No Plan Of Treatment Pending Test Test Name Order Date X ray : Foot, left 3V 11/27/2020 Insurance Providers Payer Name Payer Address Payer Phone Subscriber Number Group Number Insured Name Patient Relationship to Insured Coverage Start Date Coverage End Date Preferred Care PPO [address] JENNIFER [place]ak [phone] [id number] Anuj Staton Self - patient is the insured Medical (General) History Medical History History ICD Code Back,Hip,and Knee pain CoVid-19 Celiac disease Surgical History Surgery Date(Month/Year) eye surgery
--- OUTSIDE RECORDS SUMMARY | 2024-09-29 11:47 | XMS_ITS | Patient Health Record ---
Author Organization [facility] Address [address] [place] [address] Care Team Providers Care Heat Treat Technician Name Role Phone Ozzie (RETIRED) Reynaldo CARDENAS Primary Care Provide r Unavailable Joe Cook Unavailable [phone] Reason For Referral No Information Medications Medication SIG (Take, Route, Fr equency, Duration) Notes Start Date End Date Status Ibuprofen 200 MG 1 tablet as needed Orally prn Active Problems Problem Type SNOMED Code ICD Code Onset Dates Problem Status W/U Status Risk Notes Problem 682809666 Encounter for screening for malignant neoplasm of colon (Z12.11) Active confirmed Problem 571756555 History of adenomatous polyp of colon (Z86.010) Active confirmed Problem Encounter for screening for malignant neoplasm of rectum (Z12.12) Active confirmed Problem 39015644 Preprocedural examination (Z01.818) Active confirmed Plan Of Treatment Pending Test Test Name Order Date GI BIOPSY 07/05/2015 Future Test Test Name Order Date COLONOSCOPY 04/24/2015 Insurance Providers Payer Name Payer Address Payer Phone Subscriber Number Group Number Insured Name Patient Relationship to Insured Coverage Start Date Coverage End Date [facility] [address] [place] [phone] [id number] ROULA DAVIS Self - patient is the insured Medical (General) History Medical History History ICD Code Colonoscopy 10-22-2005--1 sma ll tubular adenoma removed, small internal hemorrhoids Denies CO,DM,CVA,Lung disease,renal dise ase Sciatica Surgical History Surgery Date(Month/Year) Right eye surgery for diplopia 2010
[2024-09-29 11:49] VITALS: BP 118/62; PULSE 70; RESP 16; TEMP 36.2; O2SAT 97; BMI 19.2
== END 2024-09-29 12:15 | disposition home or self-care (01) ==
LOC: HO.HMCHD 11:44
PROVIDERS: PCP Physician Assistant; Visit Provider Internal Medicine
DX: R51.9 Headache, unspecified (principal); R53.83 Other fatigue; H53.2 Diplopia

== ENCOUNTER 2024-09-29 12:22 | Outpatient (REF) | payer OTHER, SELFPAY ==
[2024-09-29 13:26] LABS: Iron 77 mcg/dL (45-160); Percent Iron Saturation 31 % (15-50); Total Iron Binding Capacity 245 mcg/dL (228-428); Unsaturated Iron Binding 168 ug/dL
[2024-09-29 13:50] LABS: Folate 3.9 ng/mL (> or = 4.0); Vitamin B12 428 pg/mL (200-900)
[2024-09-30 05:23] LABS: Lyme Abs Screen <0.90 index
[2024-09-30 18:28] LABS: A. Phagocytphilium DNA,RT-PCR NOT DETECTED (NOT DETECTED); Babesia Microti DNA, RT-PCR NOT DETECTED (NOT DETECTED); Borrelia Miyamotoi,DNA RT-PCR NOT DETECTED (NOT DETECTED); E.Chaffeensis DNA RT-PCR NOT DETECTED (NOT DETECTED); Lyme(Borrelia ssp)DNA RT-PCR NOT DETECTED (NOT DETECTED)
== END 2024-09-29 12:23 | disposition home or self-care (01) ==
LOC: HO.10HDL 12:22
PROVIDERS: Visit Provider Internal Medicine
DX: H53.2 Diplopia (principal); R51.9 Headache, unspecified; R53.83 Other fatigue
CPT/HCPCS: 36415; 82607; 82746; 83540; 86617; 86618; 87468; 87469; 87478; 87484; 87798

== ENCOUNTER 2024-10-13 18:42 | Outpatient (REF) | payer OTHER, SELFPAY ==
--- NOTE | ~2024-10-13 | MR_ITS ---
CLINICAL HISTORY: H53.2 - Diplopia; H A MR Brain without gadolinium Comparison: None provided Findings: No restricted diffusion. No intra-axial mass or hemorrhage. No midline shift. No hydrocephalus. Vascular flow voids are intact. Orbital contents are unremarkable. The sinuses and mastoid air cells are clear. No focal bone lesion. IMPRESSION: Unremarkable brain MRI. This document has been electronically signed by: Michael Hackett MD on 10/14/2024 07:51:44
--- OUTSIDE RECORDS SUMMARY | 2024-10-13 18:45 | XMS_ITS | Patient Health Record ---
Author Organization [facility] Address [address] [place] [address] Care Team Providers Care Personal Service Representative Name Role Phone Reynaldo Horne MD Primary Care Provider Sheryl Machado Unavailable [phone] Allergies Allergen (clinical drug ingredient) Drug/Non Drug [...] End Date Preferred Care PPO [address] [place]ENNIF[place] [phone] [id number] Anuj Staton Self - patient is the insured Medical (General) History Medical History History ICD Code Back,Hip,and Knee pain CoVid-19 Celiac disease Surgical History Surgery Date(Month/Year) eye surgery
== END 2024-10-13 18:43 | disposition home or self-care (01) ==
LOC: HO.MRI 18:42
PROVIDERS: Visit Provider Internal Medicine
DX: H53.2 Diplopia (principal); R51.9 Headache, unspecified; R53.83 Other fatigue
CPT/HCPCS: 70551

== ENCOUNTER → 2024-10-13 18:59 | Outpatient (BNV) | payer OTHER, SELFPAY | PROVIDERS: Visit Provider Specialist | DX: H53.2 Diplopia (principal) | CPT/HCPCS: 70551 ==

== ENCOUNTER 2024-10-19 08:40 | Outpatient (AMB) | payer OTHER, SELFPAY ==
[2024-10-19 08:50] VITALS: BP 124/72; PULSE 65; O2SAT 97; BMI 28.0
--- NOTE | 2024-10-19 08:50 | A.OFFVIS_ITS ---
Vital Signs 10/19/24 08:50 Height 6 ft 4 in Weight 230 lb BMI 28.0 BP 124/72 Blood Pressure Location Rt brachial Position Sitting Pulse 65 Pulse Source Pulse Oximeter Pulse Oximetry (%) 97 Oxygen Delivery Method Room Air Intake Visit Reasons: UrgentINP-Diplopia,Headache Intake Note: Headache Chin Strap Cutter Required: No Accompanied by: Spouse Allergies albuterol Allergy (Mild, Verified 09/29/24 11:46) Hives gluten Adverse Reaction (Mild, Verified 09/29/24 11:46) Abdominal Pain Medication List - Last Reconciled 10/19/24 by Lindsay Hines MD cyclobenzaprine 10 mg PO BEDTIME magnesium oxide 400 mg PO BEDTIME riboflavin (vitamin B2) 400 mg PO QAM HPI Comments Details: 58y/o male comes for evaluation of headaches . 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 He reports increased headaches for past 6 mths . The headaches are frontal with blurry vision and eye pain lasting few hrs to whole day . He has about 5 headaches days a week. Most of the time he wakes up with headaches.He has teeth grinding and wakes up with jaw stiffness He has light noise sensitivity and nausea and takes 3- 4 ibuprofens( 200mg ) and it helps.No visual aura Some episodes are associated with whole body tingling , facial numbness stiffness. No fh/o headaches No head injuries recently His sleep is Ok - has excessive daytime fatigue. [facility] Medical History (Updated 10/19/24 @ 09:52 by Lindsay Hines MD) Cervicalgia Migraine Chronic headaches HLD (hyperlipidemia) Celiac disease Family history of ovarian cancer Family history of breast cancer Gynecomastia Surgical History History of colonoscopy (~07/05/15) History of excision of mass (~01/17/20) History of breast lump/mass excision History of eye surgery Family History Father History of prostate cancer Mother History of ovarian cancer Sister History of breast cancer Sister History of lung cancer Maternal Uncle History of lung cancer Social History Alcohol intake: current Alcohol intake frequency: a few times a week Alcohol type: beer Patient Tobacco Use Status: Former Tobacco user Years Smoked: 12 e-Cigarette/Vaping Use: Never Used Current occupational status: employed Current occupation: [employer] Physical Exam Vital Signs: Last Vital Signs Pulse 65 10/19/24 08:50 BP 124/72 10/19/24 08:50 Pulse Ox 97 10/19/24 08:50 Oxygen Delivery Method Room Air 10/19/24 08:50 BMI result Body Mass Index 28.0 Const General: cooperative, healthy appearing, comfortable and no acute distress Nutritional Appearance: average body habitus Orientation/consciousness: patient oriented x3 Eyes Pupils: Equal, round and reactive pupils present Neck Neck: Yes no meningeal signs Neuro Other: Decreased neck extension- tightness and tenderness in trent levator trapezius splenius Trent TMJ tightness with decreased mouth opening General: patient oriented x3, gait normal, tone normal, moves all extremities, no meningeal signs and no focal motor deficits Cranial nerves: Yes Facial sensation intact/muscles of mastication intact, Yes Equal, round and reactive pupils present, Yes Bilaterally intact EOM present, Yes Nystagmus not present, Yes Normal facial strength present, Yes Midline tongue present, Yes Symmetric palate elevation present and Yes Ability to bilaterally elevate shoulders present Cognition (Neuro): normal cognition Gait exam (Neuro): Normal gait present and Antalgic gait present Motor exam (neuro): 5/5 motor strength present throughout and Normal motor m uscle tone present throughout Deep tendon reflexes (DTR's): Right triceps reflex intensity grade: 1+, Left triceps reflex intensity grade: 1+, Rt Biceps (C5, C6): 1+, Left biceps reflex intensity grade: 1+, Right brachioradialis reflex intensity grade: 1+, Left brachioradialis reflex intensity grade: 1+, Right patellar reflex intensity grade: 1+ and Left patellar reflex intensity grade: 1+ Coordination: rozmxc-vy-wyer test normal Assessment & Plan Assessment & Plan (1) Chronic headaches: Code(s): R51.9 - Headache, unspecified; G89.29 - Other chronic pain Category: Medical Qualifiers: Headache type: tension-type Intractability: not intractable Qualified Code(s): G44.229 - Chronic tension-type headache, not intractable (2) Migraine: Code(s): G43.909 - Migraine, unspecified, not intractable, without status migrainosus Category: Medical Qualifiers: Migraine type: migraine (< 15 days per month) without aura Status migrainosus presence: without status migrainosus Intractability: not intractable Qualified Code(s): G43.009 - Migraine without aura, not intractable, without status migrainosus (3) Cervicalgia: Code(s): M54.2 - Cervicalgia Category: Medical Plan The headaches and migraines are likely triggered by spasm in cervicla muscles, trent TMJ tightness and possible sleep apnea. I will trial him on cyclobenzaprine 10mg qhs magneisum 400mg qhs and Vit B 2 400mg qam to decrease the number of headaches I suggested to use ibuprofen as needed 200mg -2-3 tabs Sleep study ordered by PCP MRI brain reviewed will consider Triptans if he brand snot respond Migraine diary to monitor progress. PT neck Orders: Orders PT Evaluation and Treatment Today M54.2 - Cervicalgia Medications: New cyclobenzaprine 10 mg PO BEDTIME 30 tabs 2RF riboflavin (vitamin B2) 400 mg PO QAM 90 tabs 0RF magnesium oxide 400 mg PO BEDTIME 30 caps 6RF Coding Level of Care Code New Pt Level 4 (39266) Complex EM visit Add On G2211 Diagnoses Chronic tension-type headache, not intractable G44.229 Headache type: tension-type Intractability: not intractable Migraine without aura and without status migrainosus, not intractable G43.009 Migraine type: migraine (< 15 days per month) without aura Status migrainosus presence: without status migrainosus Intractability: not intractable Cervicalgia M54.2
--- OUTSIDE RECORDS SUMMARY | 2024-10-19 09:02 | XMS_ITS | Patient Health Record ---
Author Organization [facility] Address [address] [place] [address] Care Team Providers Care Special Library Librarian Name Role Phone Susan Massey M.D. Primary Care Provider Unavail able Joe Cook Unavailable [phone] Reason For Referral Referring Provider First Name Susan Referring Provider Last Name Shilpa Referred Organization [facility] Referred Provider Joe Cook Referred Address [address] [place] [address],[address],[place], [place],[address], Referred Provider Specialty Gastroentero logy Referral Priority Routine Medications Medication SIG (Take, Route, Fr equency, Duration) Notes Start Date End Date Status Ibuprofen 200 MG 1 tablet as needed Orally prn Active Problems Problem Type SNOMED Code ICD Code Onset Dates Problem Status W/U Status Risk Notes Problem 435752025 Encounter for screening for malignant neoplasm of colon (Z12.11) Active confirmed Problem 337618399 History of adenomatous polyp of colon (Z86.010) Active confirmed Problem Screening for malignant neoplasm of rectum (461636107) Encounter for screening for malignant neoplasm of rectum (Z12.12) Active confirmed Problem 19451796 Preprocedural examination (Z01.818) Active confirmed Plan Of Treatment Pending Test Test Name Order Date GI BIOPSY 07/05/2015 Future Test Test Name Order Date COLONOSCOPY 04/24/2015 Next Appt Details Provider Name:Joe Cook , 12/05/2024 11:10:00 AM, [address], [address], [place], [address], Insurance Providers Payer Name Payer Address Payer Phone Subscriber Number Group Number Insured Name Patient Relationship to Insured Coverage Start Date Coverage End Date [place] [employer] [address] [place]IOLA LAFLEUR [phone] [id number] ROULA DAVIS Self - patient is the insured Medical (General) History Medical History History ICD Code Colonoscopy 10-22-2005--1 sma ll tubular adenoma removed, small internal hemorrhoids Denies VT,DM,CVA,Lung disease,renal dise ase Sciatica Surgical History Surgery Date(Month/Year) Right eye surgery for diplopia 2010
--- OUTSIDE RECORDS SUMMARY | 2024-10-19 09:02 | XMS_ITS | Patient Health Record ---
Author Organization [facility] Address [address] [place] [address] Care Team Providers Care Agency Director Name Role Phone Reynaldo Horne MD Primary Care Provider Sheryl Machado Unavailable [phone] Allergies Allergen (clinical drug ingredient) Drug/Non Drug [...] End Date Preferred Care PPO [address] JENNIF[place]ak [phone] [id number] Anuj Staton Self - patient is the insured Medical (General) History Medical History History ICD Code Back,Hip,and Knee pain CoVid-19 Celiac disease Surgical History Surgery Date(Month/Year) eye surgery
== END 2024-10-19 09:40 | disposition home or self-care (01) ==
LOC: HO.HSMS 08:47
PROVIDERS: Visit Provider Psychiatry & Neurology Neurology
DX: G44.229 Chronic tension-type headache, not intractable (principal); G43.009 Migraine without aura, not intractable, without status migrainosus; M54.2 Cervicalgia
CPT/HCPCS: 99204

== ENCOUNTER 2024-11-10 15:57 | Outpatient (AMB) | payer OTHER, SELFPAY ==
--- OUTSIDE RECORDS SUMMARY | 2024-11-10 16:00 | XMS_ITS | Patient Health Record ---
Author Organization [facility] Address [address] [place] [address] Care Team Providers Care Digester Name Role Phone Reynaldo Horne MD Primary Care Provider Sheryl Machado Unavailable [phone] Allergies Allergen (clinical drug ingredient) Drug/Non Drug [...] End Date Preferred Care PPO [address] [place] [phone] [id number] Anuj Staton Self - patient is the insured Medical (General) History Medical History History ICD Code Back,Hip,and Knee pain CoVid-19 Celiac disease Surgical History Surgery Date(Month/Year) eye surgery
--- OUTSIDE RECORDS SUMMARY | 2024-11-10 16:00 | XMS_ITS | Patient Health Record ---
Author Organization [facility] Address [address] [place] [address] Care Team Providers Care Junk Removal Specialist Name Role Phone Susan Massey M.D. Primary Care Provider Unavail able Joe Cook Unavailable [phone] Reason For Referral Referring Provider First Name Susan Referring Provider Last Name Shilpa Referred Organization [facility] Referred Provider Joe Cook Referred Address [address] [place] [address],[address],[place], [place],[address], Referred Provider Specialty Gastroentero logy Referral Priority Routine Medications Medication SIG (Take, Route, Fr equency, Duration) Notes Start Date End Date Status Ibuprofen 200 MG 1 tablet as needed Orally prn Active Problems Problem Type SNOMED Code ICD Code Onset Dates Problem Status W/U Status Risk Notes Problem 119419084 Encounter for screening for malignant neoplasm of colon (Z12.11) Active confirmed Problem 861145191 History of adenomatous polyp of colon (Z86.010) Active confirmed Problem Screening for malignant neoplasm of rectum (715211341) Encounter for screening for malignant neoplasm of rectum (Z12.12) Active confirmed Problem 68602572 Preprocedural examination (Z01.818) Active confirmed Plan Of Treatment Pending Test Test Name Order Date GI BIOPSY 07/05/2015 Future Test Test Name Order Date COLONOSCOPY 04/24/2015 Next Appt Details Provider Name:Joe Cook , 12/05/2024 11:10:00 AM, [address], [address], [place], [address], Insurance Providers Payer Name Payer Address Payer Phone Subscriber Number Group Number Insured Name Patient Relationship to Insured Coverage Start Date Coverage End Date [place] [employer] [address] [place] LAFLEUR [phone] [id number] ROULA DAVIS Self - patient is the insured Medical (General) History Medical History History ICD Code Colonoscopy 10-22-2005--1 sma ll tubular adenoma removed, small internal hemorrhoids Denies [place],DM,CVA,Lung disease,renal dise ase Sciatica Surgical History Surgery Date(Month/Year) Right eye surgery for diplopia 2010
[2024-11-10 16:06] VITALS: BP 120/70; PULSE 86; O2SAT 97; BMI 27.3
--- NOTE | 2024-11-10 16:06 | A.OFFVIS_ITS ---
Vital Signs 11/10/24 16:06 Height 6 ft 4 in Weight 101.605 kg BMI 27.3 BP 120/70 Blood Pressure Location Lt brachial Position Sitting Pulse 86 Pulse Source Pulse Oximeter Pulse Oximetry (%) 97 Oxygen Delivery Method Room Air Intake Visit Reasons: 6 week f/u Intake Note: Patient presents for follow up. Accompanied by: Spouse Allergies albuterol Allergy (Mild, Verified 11/10/24 16:09) Hives gluten Adverse Reaction (Mild, Verified 11/10/24 16:09) Abdominal Pain HPI Comments Details: 58-year-old male with history of hyperlipidemia, gynecomastia, pseudogout, celiac sprue, osteoarthritis who presents to the office today for follow-up. Recently had rash with palpable purpura with biopsy showing spongiotic dermatitis. Did see Dermatology and was advised to follow-up with rheumatology due to low titer positive SUMAYA. He has upcoming appointment. Rash has resolved and has not recurred. He did also present due to headache, dizziness, nausea that had been ongoing since March. There was also some double vision especially when looking downward. There been overwhelming fatigue. He can wake up with headaches or they developed during the day. Memory issues have also been presenting over years. Labs reviewed with his patient and his with normal iron levels, no evidence of anemia. Vitamin B12 level was normal though folate was slightly low at 3.9. TSH checked at prior visit showed normal. Total testosterone free testosterone both within normal limits. Tick panel was negative. MRI of the brain unremarkable. He was referred to Neurology who prescribed cyclobenzaprine, magnesium, riboflavin for his headaches which have greatly improved. He does also feel like the fatigue has improved though does still persist. He has also been referred for sleep study. He is also reporting pain in the left bicep. Ongoing for about a month. No injury noted. He does have full flexion and extension of the elbow and full range of motion of the shoulder. He does tell me that he has a history of alcohol use disorder. Quit about 6 months ago. He had been drinking about 6 beers per night for many years. ROS: See HPI EXAM: Constitutional - Awake and Alert, No apparent distress Eyes - PERRL Cardiovascular - S1S2, RRR, No edema Respiratory - Normal lung expansion, Normal respiratory effort, No respiratory distress, CTA bilaterally Extremities - no calf tenderness bilaterally, no swelling. Tenderness palpation over the left biceps. No Leandro deformity. Full flexion extension of the elbow Skin - Warm/Dry Neurological - Alert & oriented x3. 5/5 strength BUE Psychological - Appropriate affect PFSH Medical History Cervicalgia Migraine Chronic headaches HLD (hyperlipidemia) Celiac disease Family history of ovarian cancer Family history of breast cancer Gynecomastia Surgical History History of colonoscopy (~07/05/15) History of excision of mass (~01/17/20) History of breast lump/mass excision History of eye surgery Family History Father History of prostate cancer Mother History of ovarian cancer Sister History of breast cancer Sister History of lung cancer Maternal Uncle History of lung cancer Social History Alcohol intake: current Alcohol intake frequency: a few times a week Alcohol type: beer Patient Tobacco Use Status: Former Tobacco user Years Smoked: 12 e-Cigarette/Vaping Use: Never Used Current occupational status: employed Current occupation: [employer] Physical Exam Vital Signs: Last Vital Signs Pulse 86 11/10/24 16:06 BP 120/70 11/10/24 16:06 Pulse Ox 97 11/10/24 16:06 Oxygen Delivery Method Room Air 11/10/24 16:06 BMI result Body Mass Index 27.3 Assessment & Plan Assessment & Plan (1) Chronic headaches: Code(s): R51.9 - Headache, unspecified; G89.29 - Other chronic pain Category: Medical Qualifiers: Headache type: tension-type Intractability: not intractable Qualified Code(s): G44.229 - Chronic tension-type headache, not intractable Plan: Improving. Continue following with Neurology. Continue Flexeril, magnesium, riboflavin (2) Vasculitis: Code(s): I77.6 - Arteritis, unspecified Category: Medical Plan: No recurrence of rash. We will be following up with Rheumatology given associated fatigue and low positive SUMAYA titer (3) Biceps tendinitis: Code(s): M75.20 - Bicipital tendinitis, unspecified shoulder Category: Medical Plan: Refer to orthopedics. Can use ibuprofen or Tylenol as needed Plan Follow-up in the office as scheduled. Given prescriptions for thiamine and folic acid with recent history of alcohol use disorder which may also be contributing to his memory issues. Continue following with Neurology Medications: New folic acid 1 mg PO DAILY 90 tabs 0RF thiamine HCl (vitamin B1) 100 mg PO DAILY 90 caps 1RF Patient Instructions: Optomitrist Coding Level of Care Code Est Pt Level 4 (19605) Diagnoses Chronic tension-type headache, not intractable G44.229 Headache type: tension-type Intractability: not intractable Vasculitis I77.6 Biceps tendinitis M75.20
== END 2024-11-10 16:40 | disposition home or self-care (01) ==
LOC: HO.HMCHD 15:58
PROVIDERS: PCP Physician Assistant; Visit Provider Physician Assistant
DX: G44.229 Chronic tension-type headache, not intractable (principal); I77.6 Arteritis, unspecified; M75.20 Bicipital tendinitis, unspecified shoulder

== ENCOUNTER → 2024-11-10 15:57 | Outpatient (BNVA) | payer OTHER, SELFPAY | PROVIDERS: PCP Physician Assistant; Visit Provider Physician Assistant | DX: I77.6 Arteritis, unspecified (principal) ==

== ENCOUNTER 2024-12-07 16:00 | Outpatient (RCR) | payer OTHER, SELFPAY ==
--- NOTE | 2024-11-15 17:14 | MHC.PT.EP ---
[facility] [place] [facility] [place] [facility] [place] Office [address] Imtiaz [place] [address] [phone] F: [phone] F: [phone] F: [phone] F: [phone] Physical Therapy Plan of Care Date of Evaluation: 11/07/24 Date of Surgery: Diagnosis: Cervicalgia. Assessment: Pt is a 58 y/o male with PMHx of migraine, chronic headaches, HLD, Celiac disease, History of eye surgery who is referred to PT for eval and treat of cervicalgia which is resulting in decreased tolerance for reading for duration, performing heavy home and work tasks, driving, performing fitness and recreation activities as well as disturbed sleep secondary to decreased cervical ROM, decreased cervical strength, decreased scapular posture, increased cervical accessory tissue tension, frequent JACOBO and neck pain. Pt is deemed an appropriate candidate to receive skilled PT services to address their physical impairments in order to improve their functional ability. Frequency and Duration: The patient will be seen 2 x / wk x 4 wks. Short Term Goals: Initiate home program. Pt will report improved pain to at most 2 /10; initial: 4/10. Metal Checker Goals: I with home program. Pt will report slight JACOBO which come infrequently; initial; moderate and frequent. Pt will report at most 1/4 disturbed nights sleep d/t cervical discomfort; initial: 3/4 disturbed. Pt will Treatment Plan: Modalities to reduce pain, spasms and effusion. Manual therapy to restore motion and function. Therapeutic exercise to improve strength and flexibility. Neuromuscular re-education for posture and balance. Therapeutic activities to return to functional activities of daily living. Electronically signed by: Jamie Troy PT. Please sign and return to therapist. Thank you for your referral.
== END 2025-02-26 10:42 | disposition home or self-care (01) ==
LOC: HO.PT 16:00
PROVIDERS: PCP Internal Medicine; Visit Provider Psychiatry & Neurology Neurology
DX: M54.2 Cervicalgia (principal)
CPT/HCPCS: 97110; 97140; 97161; 97530

== ENCOUNTER 2025-02-18 22:50 | Emergency (ER) | payer OTHER, SELFPAY ==
--- OUTSIDE RECORDS SUMMARY | 2024-12-05 06:10 | XMS_ITS ---
Author Organization [facility] Address [address] [facility] [address] [place] [address] Care Team Providers Care Afternoon Babysitter Name Role Phone Susan Massey M.D. Primary Care Provider Joe Garcia [phone] REASON FOR VISIT Patient presents today for anemia,celiac Encounters Encounter Location Date Provider Diagnosis [facility] [address] [place] [address] 12/05/2024 Joe Cook Plan Of Treatment Next Appt Details Provider Name:Joe Becky Joey , 03/09/2025 02:40:00 PM, [address] [place] [address], Suite [facility], [place], [address], Progress Notes * ROULA DAVIS DDOB: 4 (59 yo M)Acc No.[id number]:12/05/2024 Progress Notes Patient: Teresa ROULA ROJAS Provider: Avis Cook MD :1965 A ge:58 Y S ex:Male Date:12/05/2024 Address:[address] [place], [place] [id number] Pcp:Susan Massey M.D. Subjective: * Chief Complaints: * P atient presents today for anemia,celiac Billing Information: * Procedure Codes: * The named appointment provid er may or may not be the originator of this progress note, and it is not deemed complete until electronically signed by the appointment provider. Sign off status: Pending * Provider: Avis Cook MD Date: 0 12/05/2024 Generated for Rosie walker/Germania/Carlitos on: 1 04/21/2024 11:56 PM EST
--- NOTE | ~2025-02-18 | XR_ITS ---
CLINICAL HISTORY: SOB 2 view chest x-ray Comparison: None provided Findings: No consolidation or effusion. Normal size heart. No acute fracture. IMPRESSION: Partial atelectasis right lower lobe posteriorly. This document has been electronically signed by: Agusto Espinoza MD on 02/19/2025 01:26:45
[2025-02-18 22:58] VITALS: BP 150/70; BP 151/74; PULSE 85; PULSE 89; RESP 18; TEMP 36.7; O2SAT 94; O2SAT 98; BMI 29.9
--- NOTE | 2025-02-18 23:18 | ECG_ITS ---
Test Reason : SOB Blood Pressure : */* mmHG Vent. Rate : 82 BPM Atrial Rate : 82 BPM P-R Int : 140 ms QRS Dur : 96 ms QT Int : 384 ms P-R-T Axes : 59 -1 59 degrees QTcB Int : 448 ms s Sinus rhythm with Premature atrial complexes Incomplete right bundle branch block Borderline ECG When compared with ECG of 10-Jun-2015 09:45, Premature atrial complexes are now Present Vent. rate has increased by 28 bpm Nonspecific T wave abnormality now evident in Anterolateral leads Referred By: Generic ED Physician Electronically Signed By: Aj Zarate
--- OUTSIDE RECORDS SUMMARY | 2025-02-18 23:56 | XMS_ITS | Patient Health Record ---
Author Organization [facility] Address [address] [place] [address] Care Team Providers Care Contract Assistant Name Role Phone Susan Massey M.D. Primary Care Provider Unavail able Joe Cook Unavailable [phone] Reason For Referral Referring Provider First Name Susan Referring Provider Last Name Shilpa Referred Organization [facility] Referred Provider Joe Cook Referred Address [address] [facility], [address],[place], [place],[address], Referred Provider Specialty Gastroentero logy Referral Priority Routine Medications Medication SIG (Take, Route, Fr equency, Duration) Notes Start Date End Date Status Ibuprofen 200 MG Tablet 1 tablet as need ed Orally prn Active Social History Social History Additional Details Category Social Info Options Details Miscellaneous: Marital status: 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 Section Notes: Nonsmoker; 1 or 2 beers QD Problems Problem Type SNOMED Code ICD Code Onset Dates Problem Status W/U Status Risk Notes Problem Screening for malignant neoplasm of colon (340826931) Encounter for screening for malignant neoplasm of colon (Z12.11) Active confirmed Problem History of adenomatous polyp of colon (390155498) History of adenomatous polyp of colon (Z86.010) Active confirmed Problem Screening for malignant neoplasm of rectum (848870571) Encounter for screening for malignant neoplasm of rectum (Z12.12) Active confirmed Problem Preprocedural examination (446614498265446) Preprocedural examination (Z01.818) Active confirmed Encounters Encounter Location Date Provider Diagnosis [facility] [address] [place] [address] 12/26/2024 Joe Cook Plan Of Treatment Pending Test Test Name Order Date GI BIOPSY 07/05/2015 Future Test Test Name Order Date COLONOSCOPY 04/24/2015 Next Appt Details Provider Name:Joe Cook , 03/09/2025 02:40:00 PM, [address], [address], [place], [address], Insurance Providers Payer Name Payer Address Payer Phone Subscriber Number Group Number Insured Name Patient Relationship to Insured Coverage Start Date Coverage End Date [employer] [address] [place] [phone] [id number] ROULA DAVIS Self - patient is the insured Medical (General) History Medical History History ICD Code Colonoscopy 10-22-2005--1 sma ll tubular adenoma removed, small internal hemorrhoids Denies [place],DM,CVA,Lung disease,renal dise ase Sciatica Surgical History Surgery Date(Month/Year) Right eye surgery for diplopia 2010
--- OUTSIDE RECORDS SUMMARY | 2025-02-18 23:56 | XMS_ITS | Patient Health Record ---
Author Organization [facility] Address [address] [place] [address] Care Team Providers Care [employer] Paralegal Name Role Phone Reynaldo Horne MD Primary Care Provider Sheryl Machado Unavailable [phone] Allergies Allergen (clinical drug ingredient) Drug/Non Drug [...] End Date Preferred Care PPO [address] [place] [phone] [id number] Anuj Staton Self - patient is the insured Medical (General) History Medical History History ICD Code Back,Hip,and Knee pain CoVid-19 Celiac disease Surgical History Surgery Date(Month/Year) eye surgery
[2025-02-19 00:14] LABS: MANUAL DIFF FLAG NO
[2025-02-19 00:16] LABS: Hematocrit 39.4 % (42.0-52.0); Hemoglobin 13.6 g/dl (14.0-18.0); Imm Gran Abs Auto 0.04 X10*3/uL (0.00-0.03); Imm Gran Pct Auto 0.6 % (0.0-0.4); Lymphocytes Absolute Auto 1.8 X10*3/uL (1.2-4.9); Mean Corpuscular HGB Conc 34.5 g/dl (31.0-36.0); Mean Corpuscular Hemoglobin 30.4 pg (27.0-33.0); Mean Corpuscular Volume 87.9 fL (80.0-98.0); NRBC Abs Auto 0.000 X10*3/uL (0.0-0.012); NRBC Pct Auto 0.0 /100WBC (0.0-0.2); Platelet Count 142 X10*3/uL (160-400); Red Blood Count 4.48 X10*6/uL (4.60-5.80); White Blood Count 6.4 X10*3/uL (4.8-10.8)
[2025-02-19 00:30] LABS: Alanine Aminotransferase 15 U/L (0-40); Albumin Level 4.1 g/dL (3.5-5.0); Alkaline Phosphatase 78 U/L (39-117); Anion Gap 13 (12-20); Aspartate Amino Transferase 24 U/L (5-37); Blood Urea Nitrogen 11 mg/dL (9-16); Calcium 8.7 mg/dL (8.4-10.2); Carbon Dioxide 21 mmol/L (22-29); Chloride 110 mmol/L (96-108); Creatinine Clr Calc Pharmacy 94.6; Estimated Glomerular Filt Rate > 60; Magnesium 2.2 mg/dL (1.6-2.6); Potassium 3.4 mmol/L (3.3-5.1); Sodium 141 mmol/L (135-145); Total Protein 6.8 g/dL (6.5-8.0)
[2025-02-19 00:41] LABS: Troponin-I High Sensitivity < 2.7 ng/L (<3.5-35.0)
[2025-02-19 00:53] LABS: Resp Syncy Virus RNA Qual PCR NEGATIVE (Negative); SARS COV2 PCR INHOUSE NEGATIVE (Negative)
[2025-02-19 02:17] VITALS: BP 131/86; PULSE 69; RESP 16; TEMP 36.5; O2SAT 95
[2025-02-19 02:58] LABS: Troponin-I High Sensitivity < 2.7 ng/L (<3.5-35.0)
[2025-02-19 03:15] LABS: D Dimer High Sensitivity < 150 NG/ML
--- NOTE | 2025-02-19 04:12 | ED.SOB ---
HPI - SOB/Dyspnea General Chief Complaint: Dyspnea Stated Complaint: sob Time Seen by Provider: 02/18/25 23:19 Source: patient, family and EMS Mode of arrival: EMS Limitations: no limitations History of Present Illness ED Provider: Dr. Evi Villa HPI Narrative: 59 year old male with no diagnosed medical problems aside from recent diagnosis of gout presenting with sudden onset SOB that woke him from sleep tonight. Admits he went to bed feeling well. No recent illness. He denies recent fevers or chills, headaches or vision changes, stiff neck, cough, chest pain, n/v/d, melena or hematochezia, leg swelling or recent travel. Started colchicine 3 days ago for gout in his knees and feet . No other meds besides OTC tylenol and advil. Related Data Home Medications ?Medication ?Instructions ?Recorded ?Confirmed colchicine 0.6 mg tablet 0.6 mg PO DAILY 02/21/25 02/22/25 Previous Rx's ?Medication ?Instructions ?Recorded thiamine HCl (vitamin B1) 100 mg 100 mg PO DAILY #90 caps 11/10/24 capsule folic acid 1 mg tablet 1 mg PO DAILY 90 days #90 tabs 02/05/25 cefuroxime axetil 250 mg tablet 250 mg PO Q12H 7 days #14 tabs 02/19/25 doxycycline monohydrate 100 mg 100 mg PO BID 7 days #14 caps 02/19/25 capsule prednisone 50 mg tablet 50 mg PO DAILY 5 days #5 tabs 02/19/25 omeprazole 40 mg capsule,delayed 40 mg PO BID #180 caps 02/21/25 release cyclobenzaprine 10 mg tablet 10 mg PO BEDTIME #30 tabs 02/22/25 magnesium oxide 400 mg PO BEDTIME #30 caps 02/22/25 riboflavin (vitamin B2) 400 mg 400 mg PO QAM #90 tabs 02/22/25 tablet Allergies Allergy/AdvReac Type Severity Reaction Status Date / Time albuterol Allergy Mild Hives Verified 02/22/25 10:22 gluten AdvReac Mild Abdominal Verified 02/22/25 10:22 Pain Review of Systems Review of Systems: as per HPI, full review of systems performed and negative but for the above mentioned pertinent positives and negatives. [facility] Past Medical History Medical History Hypersomnia Snoring GERD (gastroesophageal reflux disease) Cervicalgia Migraine Chronic headaches HLD (hyperlipidemia) Celiac disease Family history of ovarian cancer Family history of breast cancer Gynecomastia Surgical History History of colonoscopy (~07/05/15) History of excision of mass (~01/17/20) History of breast lump/mass excision History of eye surgery Family History Family History Father History of prostate cancer Mother History of ovarian cancer Sister History of breast cancer Sister History of lung cancer Maternal Uncle History of lung cancer Social History Social History Alcohol intake: current Alcohol intake frequency: a few times a week Alcohol type: beer Patient Tobacco Use Status: Former Tobacco user Years Smoked: 12 e-Cigarette/Vaping Use: Never Used Current occupational status: employed Current occupation: [employer] Physical Exam Exam: Exam: GENERAL: Well-Appearing, conversant, no acute distress. SKIN: Normal skin color for ethnicity, warm, dry, no rashes noted. HEENT:? Normocephalic, atraumatic, no stridor, posterior oropharynx nonerythematous, dentition intact, EOMI. NECK: Soft, supple, full ROM, midline structures nontender, no step-offs, no deformities, no lymphadenopathy. CHEST: Heart regular rate and rhythm, no murmurs, symmetric chest rise and fall. PULMONARY: Clear to auscultation bilaterally, no labored breathing, no wheezes/rhales/rhonchi. ABDOMINAL: Soft, nondistended, nontender, positive bowel sounds in all quadrants. : Deferred. MUSCULOSKELETAL: Normal tone, full range of motion, no deformities, no peripheral edema. NEURO: Alert and oriented x3, CN II through XII intact, equal strength and sensation bilateral upper and lower extremities, no focal neurologic deficits.? PSYCHIATRIC: Normal affect, fluid speech, good eye contact and appropriate demeanor. Vital Signs: Vital Signs: Last Vital Signs Temp 97.8 F 02/19/25 05:31 Pulse 79 02/19/25 05:31 Resp 14 02/19/25 05:31 BP 130/81 02/19/25 05:31 Pulse Ox 95 02/19/25 05:31 O2 Del Method Room Air 02/19/25 05:31 BMI result Body Mass Index 29.9 Medications Administered Discontinued Medications Generic Name Dose Route Start Last Admin Trade Name Krupa PRN Reason Stop Dose Admin Azithromycin 500 mg 02/19/25 04:12 02/19/25 04:29 Azithromycin 500 Mg Tablet PO 02/19/25 04:13 500 mg ONCE ONE Administration Dexamethasone 10 mg 02/19/25 00:21 02/19/25 00:30 Dexamethasone 2 Mg Tablet PO 02/19/25 00:22 10 mg ONCE ONE Administration Medical Decision Making Medical Decision Making [facility] Narrative: Patient presents today with chief complaint of shortness of breath. Differential diagnosis includes, but is not limited to, upper respiratory infection, pneumonia, COPD exacerbation, asthma exacerbation, CHF, pneumothorax, pleural effusion, pulmonary embolism, ACS. Broad-based work-up will be initiated to evaluate for etiology of patient's symptoms. EKG, cardiac enzymes and d-dimer all negative. XR showing possible RLL pneumonia. Given his stymptoms, will treat for CAP. Patient feeling improved, though only moderately. Symptoms still there, but improving. Extensive discussion regarding cardiac risk, importance of follow up with his doctor, His RSV/Flu/COVID swabs were negative. Using shared decision making, plan for discharge home to follow-up with primary care and/or specialist.? Patient understands and agrees with plan for discharge.? Discharged home in stable condition. Differential Diagnosis Differential Diagnoses: The differential diagnosis associated with the presentation includes (as above) Admission/Observation Consideration of admission/observation: Escalation of care including admission/observation considered Lab Data [facility] Lab Attestation statement: I reviewed the patient's lab results. 02/18/25 23:54 02/18/25 23:54 Labs: Lab Results 02/18/25 02/19/25 Range/Units 23:54 02:16 WBC 6.4 (4.8-10.8) X10*3/uL RBC 4.48 L (4.60-5.80) X10*6/uL Hgb 13.6 L (14.0-18.0) g/dl Hct 39.4 L (42.0-52.0) % MCV 87.9 (80.0-98.0) fL MCH 30.4 (27.0-33.0) pg MCHC 34.5 (31.0-36.0) g/dl RDW 13.1 (11.0-16.0) % Plt Count 142 L (160-400) X10*3/uL MPV 8.5 L (9.4-12.4) fL Immature Gran % (Auto) 0.6 H (0.0-0.4) % Neut % (Auto) 60.8 (45-73) % Lymph % (Auto) 28.7 (20-40) % [place] % (Auto) 8.0 (2-11) % Eos % (Auto) 1.3 (0-4) % Baso % (Auto) 0.6 (0-2) % Lymph # (Auto) 1.8 (1.2-4.9) X10*3/uL [place] # (Auto) 0.5 (0.1-1.2) X10*3/uL Eos # (Auto) 0.1 (0.0-0.4) X10*3/uL Baso # (Auto) 0.0 (0.0-0.2) X10*3/uL Abs Immat Gran (auto) 0.04 H (0.00-0.03) X10*3/uL Absolute Neuts (auto) 3.9 (2.0-8.3) x10*3/uL Absolute Nucleated RBC 0.000 (0.0-0.012) X10*3/uL Nucleated RBC % (auto) 0.0 (0.0-0.2) /100WBC D-Dimer High Sensitivty < 150 NG/ML Sodium 141 (135-145) mmol/L Potassium 3.4 (3.3-5.1) mmol/L Chloride 110 H (96-108) mmol/L Carbon Dioxide 21 L (22-29) mmol/L Anion Gap 13 (12-20) BUN 11 (9-16) mg/dL Creatinine 1.12 (0.5-1.4) mg/dL Estim Creat Clear Calc 94.6 Estimated GFR > 60 Random Glucose 131 H (60-115) mg/dL Calcium 8.7 (8.4-10.2) mg/dL Magnesium 2.2 (1.6-2.6) mg/dL Total Bilirubin 0.3 (0.0-1.0) mg/dL AST 24 (5-37) U/L ALT 15 (0-40) U/L Alkaline Phosphatase 78 (39-117) U/L Troponin I High Sens < 2.7 < 2.7 (<3.5-35.0) ng/L Total Protein 6.8 (6.5-8.0) g/dL Albumin 4.1 (3.5-5.0) g/dL Influenza Type A (PCR) NEGATIVE (Negative) Influenza Type B (PCR) NEGATIVE (Negative) RSV RNA Qual (PCR) NEGATIVE (Negative) SARS-CoV-2 RNA (RT-PCR) NEGATIVE (Negative) Independent Interpretation I performed an independent interpretation of an: EKG and Plain X-Ray Interpretation: My independent interpretation of the chest x-ray reveals no consolidations, pulmonary edema, pleural effusion, pneumothorax, obvious bony abnormalities. Radiology Impression Discussion of test interpretation with radiology: I have reviewed the radiologist's reading. Radiologist Impression: radiologist reading possible posterior/RLL pneumonia Independent Historian Clinical information obtained from an independent historian. History obtained from or confirmed by: Spouse and EMS Prescription Management I considered prescription management with: Antibiotic Discharge Plan Discharge Clinical Impression: Choking episode occurring at night, Right lower lobe pneumonia Patient Disposition: Home, Self-Care Instructions: Pneumonia (ED), Shortness of Breath (ED) Additional Instructions: Take your antibiotic as prescribed until the course is completed. Do not stop this medication early if you start to feel better. Return to the emergency department immediately with any new or worsening symptoms including: Worsening shortness of breath, fevers greater than 100 degrees despite antibiotic use, throat swelling or tongue swelling, any new symptom that concerns you. You may continue to take your colchicine as prescribed. Follow up with your primary care doctor regarding the use of this medication. It is unlikely that you had an allergic reaction to this medication tonight. Anaphylaxis symptoms include: Rash, tongue or throat swelling, passing out, severe abdominal pain associated with nausea, vomiting and diarrhea, among others. If you experience any of these symptoms, call 911 and return to the emergency department immediately. Prescriptions: New cefuroxime axetil 250 mg tablet 250 mg PO Q12H 7 Days Qty: 14 0RF doxycycline monohydrate 100 mg capsule 100 mg PO BID 7 Days Qty: 14 0RF prednisone 50 mg tablet 50 mg PO DAILY 5 Days Qty: 5 0RF No Action folic acid 1 mg tablet 1 mg PO DAILY 90 Days Qty: 90 1RF cyclobenzaprine 10 mg tablet 10 mg PO BEDTIME Qty: 30 2RF magnesium oxide 400 mg magnesium capsule 400 mg PO BEDTIME Qty: 30 6RF riboflavin (vitamin B2) 400 mg tablet 400 mg PO QAM Qty: 90 0RF thiamine HCl (vitamin B1) 100 mg capsule 100 mg PO DAILY Qty: 90 1RF colchicine 0.6 mg tablet 0.6 mg PO DAILY omeprazole 40 mg capsule,delayed release(DR/EC) 40 mg PO BID Qty: 180 0RF Rx Instructions: Take 1 cap 1-2 hours before bedtime. If symptoms remain uncontrolled, add additional cap every morning, 1 hour before any food/medication/beverages other than water Interventions: ED Discharge Assessment Last Done: 02/19/25 05:31 Discharge Date/Time: 02/19/25 05:35 Print Language: Romansh
[2025-02-19 05:31] VITALS: BP 130/81; PULSE 79; RESP 14; TEMP 36.6; O2SAT 95
== END 2025-02-19 05:35 | disposition home or self-care (01) ==
PROVIDERS: Emergency Provider Emergency Medicine; PCP Physician Assistant
DX: J18.1 Lobar pneumonia, unspecified organism (principal); R09.89 Other specified symptoms and signs involving the circulatory and respiratory systems; R06.02 Shortness of breath; I49.1 Atrial premature depolarization; I45.10 Unspecified right bundle-branch block; Z03.818 Encounter for observation for suspected exposure to other biological agents ruled out
CPT/HCPCS: 36415; 71046; 80053; 83735; 84484; 85025; 85379; 87637; 93005; 99283; 99284; J8540

== ENCOUNTER → 2025-02-18 23:18 | Outpatient (BNV) | payer OTHER, SELFPAY | PROVIDERS: Emergency Provider Emergency Medicine; PCP Physician Assistant; Visit Provider Internal Medicine Cardiovascular Disease | DX: I49.1 Atrial premature depolarization (principal); I45.10 Unspecified right bundle-branch block | CPT/HCPCS: 93010 ==

== ENCOUNTER → 2025-02-19 00:22 | Outpatient (BNV) | payer OTHER, SELFPAY | PROVIDERS: Emergency Provider Emergency Medicine; PCP Physician Assistant; Visit Provider Radiology Diagnostic Radiology | DX: J98.11 Atelectasis (principal) | CPT/HCPCS: 71046 ==

== ENCOUNTER 2025-02-21 10:57 | Outpatient (AMB) | payer OTHER, SELFPAY ==
--- OUTSIDE RECORDS SUMMARY | 2024-12-05 06:10 | XMS_ITS ---
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 Primary Care Provider Joe Garcia [phone] REASON FOR VISIT Patient presents today for anemia,celiac Encounters Encounter Location Date Provider Diagnosis [facility] [address] [place] [address] 12/05/2024 Joe Cook Plan Of Treatment Next Appt Details Provider Name:Joe Becky Joey , 03/09/2025 02:40:00 PM, [address] [place] [address], Suite [facility], [place], [address], Progress Notes * ROULA DAVIS DDOB: 4 (59 yo M)Acc No.[id number]:12/05/2024 Progress Notes Patient: Teresa ROULA ROJAS Provider: Avis Cook MD :1965 A ge:58 Y S ex:Male Date:12/05/2024 Address:[address] [place], [place] [id number] Pcp:Susan Massey M.D. Subjective: * Chief Complaints: [...] 12/05/2024 Generated for Rosie walker/Germania/Carlitos on: 1 04/24/2024 02:24 PM EST
--- NOTE | 2025-02-21 11:02 | MHC.PC.OV ---
Vital Signs 02/21/25 11:06 Height 6 ft 4 in Weight 105.29 kg BMI 28.3 BP 122/68 Respiration 16 Pulse 74 Pulse Source Pulse Oximeter Temp 97.5 F Temp Source Temporal Artery Scan Pulse Oximetry (%) 96 Oxygen Delivery Method Room Air Intake Visit Reasons: ED F/U C 02/18/25 [facility] Required: No Accompanied by: Self / Same As Patient Allergies albuterol Allergy (Mild, Verified 02/21/25 11:02) Hives gluten Adverse Reaction (Mild, Verified 02/21/25 11:02) Abdominal Pain Medication List - Last Reconciled 02/21/25 by FELICITY Zhang cefuroxime axetil 250 mg PO Q12H 7 days colchicine 0.6 mg PO DAILY cyclobenzaprine 10 mg PO BEDTIME doxycycline monohydrate 100 mg PO BID 7 days folic acid 1 mg PO DAILY 90 days magnesium oxide 400 mg PO BEDTIME prednisone 50 mg PO DAILY 5 days riboflavin (vitamin B2) 400 mg PO QAM thiamine HCl (vitamin B1) 100 mg PO DAILY Tobacco use date assessed: 09/29/24 HPI HPI Comments History of Present Illness Details 58-year-old male with history of hyperlipidemia, gynecomastia, pseudogout, celiac sprue, pseudogout, osteoarthritis, history of alcohol use disorder who presents to the office today for management of chronic conditions and post ER evaluation. Sleep apnea-sleep studies declined by insurance despite prior authorization. Bilateral wrist/hand pain-following with the arthritis treatment center. Suspected pseudogout. Has been using colchicine with good effect. 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 Rash has fully resolved without recurrence Hyperlipidemia-last LDL 123. Managed conservatively History of cigarette smoking-smoked 1 pack per day for about 20 years. Quit 35 years ago History of alcohol use disorder-has been sober for about 9 months. Has been drinking about 6 beers per night for many years. Concerns: On 02/18, patient reports he had an episode of significant gasping for air that necessitated EMS call. He reports he awoke from sleep with a gasping episode. He did have several coughs but nothing prolonged or significant. He denies any choking. No prior history of similar events. He since then has had a raspy voice. No productive or barking cough. He does endorse reflux episodes particularly at bedtime. He does endorse some dyspnea on exertion and dyspnea when speaking. No fevers, chills, sore throat, lightheadedness, palpitations, headaches, vision changes, chest pain. No globus sensation or dysphagia. He does have suspected sleep apnea and does requires sleep study, however he has never experienced symptoms like this in the past. On arrival to the ED, he did have concerns about an allergic reaction to colchicine, however symptoms did resolve. No swelling of the lips or tongue. In the ED, chest x-ray did show slight atelectasis at the base of the right lung. He was prescribed cefuroxime and doxycycline on discharge which he has been taking as prescribed. No obvious evidence of pneumonia. There was no leukocytosis. There is a stable normocytic anemia. Renal function electrolyte levels normal. Troponins undetectable x2. ROS: See HPI EXAM: Constitutional - Awake and Alert, No apparent distress Eyes - PERRL Cardiovascular - S1S2, RRR, No edema Respiratory - Normal lung expansion, Normal respiratory effort, No respiratory distress, CTA bilaterally Extremities - no calf tenderness bilaterally, no swelling. Skin - Warm/Dry Neurological - Alert & oriented x3. Psychological - Appropriate affect [facility] Medical History (Updated 02/21/25 @ 12:52 by FELICITY Zhang) GERD (gastroesophageal reflux disease) Cervicalgia Migraine Chronic headaches HLD (hyperlipidemia) Celiac disease Family history of ovarian cancer Family history of breast cancer Gynecomastia Surgical History History of colonoscopy (~07/05/15) History of excision of mass (~01/17/20) History of breast lump/mass excision History of eye surgery Family History Father History of prostate cancer Mother History of ovarian cancer Sister History of breast cancer Sister History of lung cancer Maternal Uncle History of lung cancer Social History Alcohol intake: current Alcohol intake frequency: a few times a week Alcohol type: beer Patient Tobacco Use Status: Former Tobacco user Years Smoked: 12 e-Cigarette/Vaping Use: Never Used Current occupational status: employed Current occupation: [email or web address] Questionnaire Thrive Questionnaire Date Thrive assessed: 08/28/24 AIYANA-7 AMB Questionnaire AIYANA-7 Date AIYANA - 7 assessed: 08/28/24 Source: Developed by Drs. Joe Alonzo, Laurel Moncada, Eugene Julian and colleagues, with an educational paola from [employer]. Physical exam (Primary Care) Vital Signs: Last Vital Signs Temp 97.5 F 02/21/25 11:06 Pulse 74 02/21/25 11:06 Resp 16 02/21/25 11:06 BP 122/68 02/21/25 11:06 Pulse Ox 96 02/21/25 11:06 Oxygen Delivery Method Room Air 02/21/25 11:06 BMI result Body Mass Index 28.3 Tobacco/Smoking Status: Tobacco use Status Tobacco use date assessed 09/29/24 02/21/25 11:08 Patient Tobacco Use Status Former Tobacco user 02/21/25 11:08 e-Cigarette/Vaping Use Never Used 02/21/25 11:08 Thrive Assessment: Date of Thrive Assessment Date Thrive assessed 08/28/24 02/21/25 11:08 Office Procedures Flu Questionnaire Does the patient have a severe egg allergy?: No Does the patient have severe life threatening allergies?: No Does the patient have a fever or illness today?: No Has the patient ever had Guillain-[place] Syndrome?: No Has the patient ever had any past reaction to a flu shot?: No Immunizations Fluarix [id number] (PF) 45 mcg (15 mcg x 3)/0.5 mL IM syringe Performing Provider: FELICITY Zhang Performing Location[place] [facility] Administered by: Shona Philip CMA on 02/21/25 11:54 Dose Route Admin Location Dispensed Lot Number Expiration Date [employer] 0.5 mL IM Left Deltoid 0.5 mL [id number] 09/04/25 [id number] [employer] VIS Given Date VIS Provided VIS Publication Date 02/21/25 Single Vaccine 24 Eligibility Eligibility Date Funding Source Not [facility] Eligible 02/21/25 Private Coding Level of Care Code Est Pt Level 4 (40242) Add On Problem Visit Only Diagnoses Laryngeal spasm J38.5 HLD (hyperlipidemia) E78.5 JACKSON (dyspnea on exertion) R06.09 Sleep apnea G47.30 GERD (gastroesophageal reflux disease) K21.9 Assessment & Plan Assessment & Plan (1) Laryngeal spasm: Code(s): J38.5 - Laryngeal spasm Category: Medical Plan: Based on symptoms and ongoing raspy voice, suspect episodes related to laryngospasm. He is counseled on this. Likely triggered by reflux. Change Prevacid to omeprazole 40 mg twice daily. Will wean as symptoms improve. Avoid triggering food items. Recommend a wedge pillow when sleeping as symptoms are primarily nocturnal. He is also referred to ENT for consideration of laryngoscope. (2) HLD (hyperlipidemia): Code(s): E78.5 - Hyperlipidemia, unspecified Category: Medical Plan: LDL 123, goal less than 100. Recommend diet lower in saturated fats and highly processed foods. Also recommend resuming exercise to assist with weight loss (3) JACKSON (dyspnea on exertion): Code(s): R06.09 - Other forms of dyspnea Category: Medical Plan: Chest x-ray largely unremarkable. No evidence of volume overload. Referred to pulmonology for further evaluation and management. PFT is ordered (4) Sleep apnea: Code(s): G47.30 - Sleep apnea, unspecified Category: Medical Plan: Refer to pulmonology (5) GERD (gastroesophageal reflux disease): Code(s): K21.9 - Gastro-esophageal reflux disease without esophagitis Category: Medical Plan: As above Plan Follow-up in the office in 6 months for annual physical exam. Influenza vaccine administered in the office today. Low suspicion for pneumonia given absence of productive cough, fevers or leukocytosis. However since he has been taking antibiotics as prescribed by the ED, he is advised to complete course. Orders: Orders Influenza [id number] Immunization Today Z23 - Encounter for immunization PFT pulmonary function test Today R05.9 - Cough, unspecified, R06.09 - Other forms of dyspnea Referrals Pulmonology Referral G47.30 - Sleep apnea, unspecified, R06.09 - Other forms of dyspnea Ear/Nose/Throat Referral J38.5 - Laryngeal spasm Medications: New omeprazole Take 1 cap 1-2 hours before bedtime. If symptoms remain uncontrolled, add additional cap every morning, 1 hour before any food/medication/beverages other than water 40 mg PO BID 180 caps 0RF
[2025-02-21 11:06] VITALS: BP 122/68; PULSE 74; RESP 16; TEMP 36.4; O2SAT 96; BMI 28.3
--- OUTSIDE RECORDS SUMMARY | 2025-02-21 14:24 | XMS_ITS | Patient Health Record ---
Author Organization [facility] Address [address] [place] [address] Care Team Providers Care Hoop Puncher Name Role Phone Reynaldo Horne MD Primary Care Provider Sheryl Machado Unavailable [phone] Allergies Allergen (clinical drug ingredient) Drug/Non Drug [...] End Date Preferred Care PPO [id number] [place] [phone] [id number] Anuj Staotn Self - patient is the insured Medical (General) History Medical History History ICD Code Back,Hip,and Knee pain CoVid-19 Celiac disease Surgical History Surgery Date(Month/Year) eye surgery
--- OUTSIDE RECORDS SUMMARY | 2025-02-21 14:24 | XMS_ITS | Patient Health Record ---
Author Organization [facility] Address [address] [place] [address] Care Team Providers Care Arabic Linguist Name Role Phone Susan Massey M.D. Primary Care Provider Unavail able Joe Cook Unavailable [phone] Reason For Referral Referring Provider First Name Susan Referring Provider Last Name Shilpa Referred Organization [facility] Referred Provider Joe Cook Referred Address [address],[place], [place],[address], Referred Provider Specialty Gastroentero logy Referral Priority [...] Problem Screening for malignant neoplasm of colon (250080545) Encounter for screening for malignant neoplasm of colon (Z12.11) Active confirmed Problem History of adenomatous polyp of colon (171560936) History of adenomatous polyp of colon (Z86.010) Active confirmed Problem Screening for malignant neoplasm of rectum (098098726) Encounter for screening for malignant neoplasm of rectum (Z12.12) Active confirmed Problem Preprocedural examination (771676628837222) Preprocedural examination (Z01.818) Active confirmed Encounters Encounter Location Date Provider Diagnosis [facility] [address] [place] [address] 12/26/2024 Joe Cook Plan Of Treatment Pending Test Test Name Order Date GI BIOPSY 07/05/2015 Future Test Test Name Order Date COLONOSCOPY 04/24/2015 Next Appt Details Provider Name:Joe Cook , 03/09/2025 02:40:00 PM, [address], [address], [place], [address], Insurance Providers Payer Name Payer Address Payer Phone Subscriber Number Group Number Insured Name Patient Relationship to Insured Coverage Start Date Coverage End Date [employer] [address] [place] [phone] [id number] ROULA DAVIS Self - patient is the insured Medical (General) History Medical History History ICD Code Colonoscopy 10-22-2005--1 sma ll tubular adenoma removed, small internal hemorrhoids Denies ME,DM,CVA,Lung disease,renal dise ase Sciatica Surgical History Surgery Date(Month/Year) Right eye surgery for diplopia 2010
== END 2025-02-21 11:47 | disposition home or self-care (01) ==
LOC: HO.HMCHD 10:58
PROVIDERS: PCP Physician Assistant; Visit Provider Physician Assistant
DX: J38.5 Laryngeal spasm (principal); E78.5 Hyperlipidemia, unspecified; R06.09 Other forms of dyspnea; G47.30 Sleep apnea, unspecified; K21.9 Gastro-esophageal reflux disease without esophagitis; Z23 Encounter for immunization

== ENCOUNTER → 2025-02-21 10:57 | Outpatient (BNVA) | payer OTHER, SELFPAY | PROVIDERS: PCP Physician Assistant; Visit Provider Physician Assistant | DX: Z23 Encounter for immunization (principal); J38.5 Laryngeal spasm; E78.5 Hyperlipidemia, unspecified; R06.09 Other forms of dyspnea; G47.30 Sleep apnea, unspecified; K21.9 Gastro-esophageal reflux disease without esophagitis | CPT/HCPCS: 90471; 90656 ==

== ENCOUNTER 2025-02-22 10:19 | Outpatient (AMB) | payer OTHER, SELFPAY ==
--- OUTSIDE RECORDS SUMMARY | 2024-12-05 06:10 | XMS_ITS ---
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 Primary Care Provider Joe Garcia [phone] REASON FOR VISIT Patient presents today for anemia,celiac Encounters Encounter Location Date Provider Diagnosis [facility] [address] [place] [address] 12/05/2024 Joe Cook Plan Of Treatment Next Appt Details Provider Name:Joe Becky Joey , 03/09/2025 02:40:00 PM, [address] [place] [address], Suite [facility], [place], [address], Progress Notes * ROULA DAVIS DDOB: 4 (59 yo M)Acc No.[id number]:12/05/2024 Progress Notes Patient: Teresa ROULA ROJAS Provider: Avis Cook MD :1965 A ge:58 Y S ex:Male Date:12/05/2024 Address:[address] [place], [place] [id number] Pcp:Susan Massey M.D. Subjective: * Chief Complaints: [...] 12/05/2024 Generated for Rosie walker/Germania/Carlitos on: 1 04/25/2024 12:42 PM EST
--- NOTE | 2025-02-22 10:21 | A.OFFVIS_ITS ---
Vital Signs 02/22/25 10:22 Height 6 ft 4 in Weight 235 lb BMI 28.6 BP 142/80 H Blood Pressure Location Rt brachial Position Sitting Pulse 79 Pulse Source Pulse Oximeter Pulse Oximetry (%) 96 Oxygen Delivery Method Room Air Intake Visit Reasons: 4mnth JACOBO Intake Note: Follow up Cervicalgia, chronic headache and migraine Bag Presser Required: No Accompanied by: Spouse Allergies albuterol Allergy (Mild, Verified 02/22/25 10:22) Hives gluten Adverse Reaction (Mild, Verified 02/22/25 10:22) Abdominal Pain Medication List - Last Reconciled 02/22/25 by Lindsay Hines MD cefuroxime axetil 250 mg PO Q12H 7 days colchicine 0.6 mg PO DAILY cyclobenzaprine 10 mg PO BEDTIME doxycycline monohydrate 100 mg PO BID 7 days folic acid 1 mg PO DAILY 90 days magnesium oxide 400 mg PO BEDTIME omeprazole 40 mg PO BID prednisone 50 mg PO DAILY 5 days riboflavin (vitamin B2) 400 mg PO QAM thiamine HCl (vitamin B1) 100 mg PO DAILY HPI Comments Details: 59y/o male comes for follow up of headaches .His headaches have decreased significantly with cyclobenzaprine, magnesium and riboflavin. The headaches are milder and has 1-2 a week . He has some snoring and he had daytime fatigue. 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 He reports increased headaches for past 6 mths . The headaches are frontal with blurry vision and eye pain lasting few hrs to whole day . He has about 5 headaches days a week. Most of the time he wakes up with headaches.He has teeth grinding and wakes up with jaw stiffness He has light noise sensitivity and nausea and takes 3- 4 ibuprofens( 200mg ) and it helps.No visual aura Some episodes are associated with whole body tingling , facial numbness stiffness. No fh/o headaches No head injuries recently His sleep is Ok - has excessive daytime fatigue. [facility] Medical History (Updated 02/22/25 @ 10:42 by Lindsay Hines MD) Hypersomnia Snoring GERD (gastroesophageal reflux disease) Cervicalgia Migraine Chronic headaches HLD (hyperlipidemia) Celiac disease Family history of ovarian cancer Family history of breast cancer Gynecomastia Surgical History History of colonoscopy (~07/05/15) History of excision of mass (~01/17/20) History of breast lump/mass excision History of eye surgery Family History Father History of prostate cancer Mother History of ovarian cancer Sister History of breast cancer Sister History of lung cancer Maternal Uncle History of lung cancer Social History Alcohol intake: current Alcohol intake frequency: a few times a week Alcohol type: beer Patient Tobacco Use Status: Former Tobacco user Years Smoked: 12 e-Cigarette/Vaping Use: Never Used Current occupational status: employed Current occupation: [employer] Physical Exam Vital Signs: Last Vital Signs Pulse 79 02/22/25 10:22 BP 142/80 H 02/22/25 10:22 Pulse Ox 96 02/22/25 10:22 Oxygen Delivery Method Room Air 02/22/25 10:22 BMI result Body Mass Index 28.6 Const General: cooperative, healthy appearing, comfortable and no acute distress Nutritional Appearance: average body habitus Orientation/consciousness: patient oriented x3 Eyes Pupils: Equal, round and reactive pupils present Neck Neck: Yes no meningeal signs Neuro Other: Decreased neck extension- tightness and tenderness in trent levator trapezius splenius - better than last visit Trent TMJ tightness with decreased mouth opening General: patient oriented x3, gait normal, tone normal, moves all extremities, no meningeal signs and no focal motor deficits Cranial nerves: Yes Facial sensation intact/muscles of mastication intact, Yes Equal, round and reactive pupils present, Yes Bilaterally intact EOM present, Yes Nystagmus not present, Yes Normal facial strength present, Yes Midline tongue present, Yes Symmetric palate elevation present and Yes Ability to bilaterally elevate shoulders present Cognition (Neuro): normal cognition Gait exam (Neuro): Normal gait present and Antalgic gait present Motor exam (neuro): 5/5 motor strength present throughout and Normal motor muscle tone present throughout Coordination: [id number] test normal Assessment & Plan Assessment & Plan (1) Chronic headaches: Code(s): R51.9 - Headache, unspecified; G89.29 - Other chronic pain Category: Medical Qualifiers: Headache type: tension-type Intractability: not intractable Qualified Code(s): G44.229 - Chronic tension-type headache, not intractable (2) Migraine: Code(s): G43.909 - Migraine, unspecified, not intractable, without status migrainosus Category: Medical Qualifiers: Migraine type: migraine (< 15 days per month) without aura Status migrainosus presence: without status migrainosus Intractability: not intractable Qualified Code(s): G43.009 - Migraine without aura, not intractable, without status migrainosus (3) Cervicalgia: Code(s): M54.2 - Cervicalgia Category: Medical (4) Snoring: Code(s): R06.83 - Snoring Category: Medical (5) Hypersomnia: Code(s): G47.10 - Hypersomnia, unspecified Category: Medical Plan The headaches and migraines are likely triggered by spasm in cervical muscles, trent TMJ tightness and possible sleep apnea. Continue cyclobenzaprine 10mg qhs magneisum 400mg qhs and Vit B 2 400mg qam I suggested to use ibuprofen as needed 200mg -2-3 tabs - has not used it Sleep study was denied by insurance MRI brain reviewed will consider Triptans if he brand snot respond Migraine diary to monitor progress. PT neck - helped a lot - continue exercises Orders: Orders RT home sleep study Today G47.10 - Hypersomnia, unspecified, R06.83 - Snoring Medications: Refilled magnesium oxide 400 mg PO BEDTIME 30 caps 6RF riboflavin (vitamin B2) 400 mg PO QAM 90 tabs 0RF cyclobenzaprine 10 mg PO BEDTIME 30 tabs 2RF Coding Level of Care Code Est Pt Level 4 (03490) Add On Problem Visit Only Diagnoses Chronic tension-type headache, not intractable G44.229 Headache type: tension-type Intractability: not intractable Migraine without aura and without status migrainosus, not intractable G43.009 Migraine type: migraine (< 15 days per month) without aura Status migrainosus presence: without status migrainosus Intractability: not intractable Cervicalgia M54.2 Snoring R06.83 Hypersomnia G47.10
[2025-02-22 10:22] VITALS: BP 142/80; PULSE 79; O2SAT 96; BMI 28.6
--- OUTSIDE RECORDS SUMMARY | 2025-02-22 12:42 | XMS_ITS | Patient Health Record ---
Author Organization [facility] Address [address] [place] [address] Care Team Providers Care Timers Inspector Name Role Phone Susan Massey M.D. Primary Care Provider Unavail able Joe Cook Unavailable [phone] Reason For Referral Referring Provider First Name Susan Referring Provider Last Name Shilpa Referred Organization [facility] Referred Provider Joe Cook Referred Address [address],[place], [place],[address], Referred Provider Specialty Gastroentero logy Referral Priority [...] Problem Screening for malignant neoplasm of colon (183071400) Encounter for screening for malignant neoplasm of colon (Z12.11) Active confirmed Problem History of adenomatous polyp of colon (588703213) History of adenomatous polyp of colon (Z86.010) Active confirmed Problem Screening for malignant neoplasm of rectum (747186116) Encounter for screening for malignant neoplasm of rectum (Z12.12) Active confirmed Problem Preprocedural examination ([id number]) Preprocedural examination (Z01.818) Active confirmed Encounters Encounter Location Date Provider Diagnosis [facility] [address] [place] [address] 12/26/2024 Joe Cook Plan Of Treatment Pending Test Test Name Order Date GI BIOPSY 07/05/2015 Future Test Test Name Order Date COLONOSCOPY 04/24/2015 Next Appt Details Provider Name:Joe Cook , 03/09/2025 02:40:00 PM, [address], [address], [place], [address], Insurance Providers Payer Name Payer Address Payer Phone Subscriber Number Group Number Insured Name Patient Relationship to Insured Coverage Start Date Coverage End Date [employer] [address] [place] [phone] [id number] ROULA DAVIS Self - patient is the insured Medical (General) History Medical History History ICD Code Colonoscopy 10-22-2005--1 sma ll tubular adenoma removed, small internal hemorrhoids Denies IA,DM,CVA,Lung disease,renal dise ase Sciatica Surgical History Surgery Date(Month/Year) Right eye surgery for diplopia 2010
--- OUTSIDE RECORDS SUMMARY | 2025-02-22 12:42 | XMS_ITS | Patient Health Record ---
Author Organization [facility] Address [address] [place] [address] Care Team Providers Care Recreation Therapy Teacher Name Role Phone Reynaldo Horne MD Primary Care Provider Sheryl Machado Unavailable [phone] Allergies Allergen (clinical drug ingredient) Drug/Non Drug [...] End Date Preferred Care PPO [address] [place] [phone] [id number] Anuj Staton Self - patient is the insured Medical (General) History Medical History History ICD Code Back,Hip,and Knee pain CoVid-19 Celiac disease Surgical History Surgery Date(Month/Year) eye surgery
== END 2025-02-22 10:47 | disposition home or self-care (01) ==
LOC: HO.HSMS 10:19
PROVIDERS: PCP Internal Medicine; Visit Provider Psychiatry & Neurology Neurology
DX: G44.229 Chronic tension-type headache, not intractable (principal); G43.009 Migraine without aura, not intractable, without status migrainosus; M54.2 Cervicalgia; R06.83 Snoring; G47.10 Hypersomnia, unspecified
CPT/HCPCS: 99214